=== PATIENT | female | born 1945 ===

== ENCOUNTER 2017-11-24 19:00 | Observation (INO) | payer OTHER ==
--- NOTE | 2017-11-24 20:07 | ED PDOC ---
HPI: Chest Pain Time Seen by Provider: 11/24/17 19:40 Chief Complaint (Nursing): Chest Pain History Per: Patient, Family History/Exam Limitations: no limitations Onset/Duration Of Symptoms: Hrs Current Symptoms Are (Timing): Still Present Quality: Aching Associated Symptoms: Diaphoresis Additional Complaint(s): 72 year old F with history of IDDM, hypothyroidism, depression, anemia, HTN presenting with chest pain, states that it started this morning at rest around 8AM, central, nonradiating, associated with shortness of breath that she describes as pleuritic. States that she has had no appetite for the past week, has not been able to sleep, and has mostly been in bed. No fevers, cough, chills, nausea, vomiting, diarrhea. States she was admitted at [facility] [place] last [place] for similar symptoms and was diagnosed with "blood pressure problems", but as far as patient and family knows, there's no history of any heart disease. Patient states she was having sweats but attributed this to fluctuations in blood pressure. Past Medical History Reviewed: Historical Data, Nursing Documentation, Vital Signs Vital Signs: Last Vital Signs Temp 98.3 F 11/25/17 05:20 Pulse 83 11/25/17 05:20 Resp 18 11/25/17 05:20 BP 112/69 11/25/17 05:20 Pulse Ox 93 L 11/25/17 05:20 - Medical History PMH: Diabetes, HTN - Surgical History Surgical History: Cholecystectomy - Family History Family History: States: Unknown Family Hx - Home Medications Home Medications: Ambulatory Orders Medication Instructions Recorded Aspirin [Adult Low Dose Aspirin EC] 81 mg PO DAILY 11/25/17 Canagliflozin [Invokana] 300 mg PO DAILY 11/25/17 Divalproex [Depakote DR] 500 mg PO HS 11/25/17 Ferrous Sulfate [Feosol] 325 mg PO DAILY 11/25/17 GlipiZIDE SR [Glucotrol XL] 5 mg PO BID 11/25/17 Insulin Lispro [Humalog (Insulin 20 units SC HS 11/25/17 Lispro)] Levothyroxine [Synthroid] 1 tab PO DAILY 11/25/17 MetFORMIN [glucoPHAGE] 1,000 mg PO BID 11/25/17 Mv,Min10/Folic Acid/D3/Ala/Lut 1 tab PO DAILY 11/25/17 [Strovite One Caplet] Legjf-2-Efrp Ethyl Esters [OMEGA 3] 1,000 mg PO BID 11/25/17 Omeprazole [Omeprazole] 40 mg PO DAILY 11/25/17 Ramipril [Altace] 10 mg PO DAILY 11/25/17 SITagliptin [Januvia] 100 mg PO DAILY 11/25/17 Simethicone [Mylicon Chew Tab] 80 mg PO TID 11/25/17 Zolpidem Tartrate [Ambien] 10 mg PO HS PRN 11/25/17 clonazePAM [Klonopin] 0.5 mg PO PRN PRN 11/25/17 - Allergies Allergies/Adverse Reactions: Allergies Allergy/AdvReac Type Severity Reaction Status Date / Time No Known Allergies Allergy Verified 11/24/17 19:16 MAYELA Risk Score for UA/NSTEMI - MAYELA Risk Score Age > 64: YES 3 or more CAD Risk Factors: YES Known CAD (Stenosis greater than 50%): NO Aspirin use in past 7 days: YES Severe Angina: NO EKG ST changes greater than 0.5mm: NO Positive Cardiac Marker: NO MAYELA Score: 3 Risk %: 13% Curb-65 Severity Score - CURB-65 Severity Score Confusion: No Bun >19mg/dl (>7mmol/L): No Respiratory Rate greater than/equal to 30: No Systolic BP <90 or Diastolic BP less than/equal 60mmHg: No Age >64: No Curb-65 Score: 0 Percentage 30-day mortality: 0.6% Wells Criteria for PE - Wells Criteria for Pulmonary Embolism Clinical Signs and Symptoms of DVT: No P.E is #1 Diagnosis, or Equally Likely: Yes Heart Rate >100: No Immobilization at least 3 days;Surgery previous 4 weeks: Yes Previous, objectively diagnosed PE or DVT: No Hemoptysis: No Malignancy w/treatment within 6 months, or palliative: No Total Score: 2.5 Review of Systems ROS Statement: Except As Marked, All Systems Reviewed And Found Negative Constitutional: Positive for: Sweats Cardiovascular: Positive for: Chest Pain Respiratory: Positive for: Shortness of Breath Physical Exam - Reviewed Nursing Documentation Reviewed: Yes Vital Signs Reviewed: Yes - Physical Exam Appears: Positive for: Well, Non-toxic, No Acute Distress Head Exam: Positive for: ATRAUMATIC, NORMAL INSPECTION, NORMOCEPHALIC Skin: Positive for: Normal Color, Warm, DRY Eye Exam: Positive for: EOMI, Normal appearance, PERRL ENT: Positive for: Normal ENT Inspection Neck: Positive for: Normal, Painless ROM Cardiovascular/Chest: Positive for: Regular Rate, Rhythm Respiratory: Positive for: CNT, Normal Breath Sounds Gastrointestinal/Abdominal: Positive for: Normal Exam, Soft. Negative for: Tenderness Back: Positive for: Normal Inspection Extremity: Positive for: Normal ROM Neurologic/Psych: Positive for: Alert, Oriented - Laboratory Results Result Diagrams: 11/24/17 20:08 11/24/17 20:08 - ECG ECG Rhythm: Positive for: Normal QRS, Normal ST Segment, Sinus Rhythm O2 Sat by Pulse Oximetry: 96 Pulse Ox Interpretation: Normal Medical Decision Making Medical Decision MakinPM A/P: Hx of multiple medical issues including DM presenting with chest pain -patient is comfortable, well appearing, BP 140's systolic currently without intervention, patient has already taken ASA today -patient has been in bed for many days, pleuritic chest pain could possibly by PE, will get d-dimer -will also get cardiac markers due to risk factors -will likely require OBS Tele admission given age and risk factors 0015 CT ANGIO CHEST FINDINGS: Pulmonary arteries: No pulmonary embolism. Aorta: Mild atherosclerotic disease. No aneurysm. Lungs: Mild atelectasis/scarring. No consolidation. Few pulmonary nodules, up to 0.4 cm. Pleural space: Trace bilateral pleural effusions. No pneumothorax. Heart: No cardiomegaly. No significant pericardial effusion. Mediastinum: Moderate to large hiatal hernia. Bones/joints: Mild compression deformities superior endplate L2, L3, L4 vertebral bodies, acute or subacute. Soft tissues: Unremarkable. Lymph nodes: No pathologically enlarged lymph nodes. Gallbladder and bile ducts: Cholecystectomy. IMPRESSION: 1. No CT evidence of pulmonary embolism. 2. Pulmonary nodules. For low-risk patients, no follow-up is necessary. For high -risk patients (smoking history or other known risk factors) an optional CT at 12 months could be performed. 3. Incidental/non-acute findings are described above. Patient comfortable, states she took ASA today. Given age and risk factors, will admit for continous cardiac monitoring and serial troponins. Dr. Cecilio woodward. Scribe Attestation: Documented by Magdalena Mooney acting as a scribe for Vega George MD. MD Mccarthy Attestation: All medical record entries made by the Eliibjonnie were at my direction and personally dictated by me. I have reviewed the chart and agree that the record accurately reflects my personal performance of the history, physical exam, medical decision making, and the department course for this patient. I have also personally directed, reviewed, and agree with the discharge instructions and disposition. Disposition - Clinical Impression Clinical Impression: Chest pain - Disposition Disposition Time: 00:15 Condition: FAIR
[2017-11-24 20:20] LABS: BASO # 0.1 K/uL (0.0-0.2); BASO % 1.2 % (0.0-2.0); EOS % 0.6 % (0.0-4.0); HEMOGLOBIN 14.2 g/dL (12.0-16.0); LYMPH # 2.5 K/uL (1.0-4.3); LYMPH % 39.3 % (20.0-40.0); MEAN CELL VOLUME 90.6 fl (81.0-99.0); MEAN CORPUSCULAR HEMOGLOBIN 30.3 pg (27.0-31.0); MEAN CORPUSCULAR HGB CONC 33.4 g/dL (33.0-37.0); MEAN PLATELET VOLUME 8.5 fl (7.2-11.7); MONO # 0.4 K/uL (0.0-0.8); NEUT # 3.3 K/uL (1.8-7.0); NEUT % 51.9 % (50.0-75.0); NRBC % 0.1 % (0.0-0.0); RBC 4.7 Mil/uL (3.80-5.20); RED CELL DISTRIBUTION WIDTH 13.8 % (11.5-14.5); WHITE BLOOD COUNT 6.3 K/uL (4.8-10.8)
[2017-11-24 20:26] LABS: BLOOD UREA NITROGEN 13 mg/dl (7-17); CALCIUM 8.6 mg/dL (8.4-10.2); GFR AFRICAN-AMERICAN > 60; GFR NON-AFRICAN AMERICAN > 60
[2017-11-24 20:48] LABS: PARTIAL THROMBOPLASTIN TIME 23.9 Seconds (25.6-37.1); PROTHROMBIN TIME 10.9 Seconds (9.8-13.1)
[2017-11-24] MEDS ORDERED: Iodixanol 320 MG/ML 100 ML BOTTLE IV ONE (23:10)
[2017-11-24] MEDS ORDERED: Sodium Chloride 0.9% 100 ML ONE (23:10)
--- NOTE | 2017-11-25 00:16 | CT ---
EXAM: CT Angiography Chest With Intravenous Contrast CLINICAL HISTORY: 72 years old, female; Pain; Chest pain; Type not specified; Additional info: Chest pain, elevated d-dimer, R/O pe TECHNIQUE: Axial computed tomographic angiography images of the chest with intravenous contrast using pulmonary embolism protocol. All CT scans at this facility use one or more dose reduction techniques, viz.: automated exposure control; ma/kV adjustment per patient size (including targeted exams where dose is matched to indication; i.e. head); or iterative reconstruction technique. MIP reconstructed images were created and reviewed. Coronal and sagittal reformatted images were created and reviewed. CONTRAST: 90 mL of [id number] administered intravenously. COMPARISON: CR - CHEST TWO VIEWS (PA/LAT) 2017-11-24 20:29 FINDINGS: Pulmonary arteries: No pulmonary embolism. Aorta: Mild atherosclerotic disease. No aneurysm. Lungs: Mild atelectasis/scarring. No consolidation. Few pulmonary nodules, up to 0.4 cm. Pleural space: Trace bilateral pleural effusions. No pneumothorax. Heart: No cardiomegaly. No significant pericardial effusion. Mediastinum: Moderate to large hiatal hernia. Bones/joints: Mild compression deformities superior endplate L2, L3, L4 vertebral bodies, acute or subacute. Soft tissues: Unremarkable. Lymph nodes: No pathologically enlarged lymph nodes. Gallbladder and bile ducts: Cholecystectomy. IMPRESSION: 1. No CT evidence of pulmonary embolism. 2. Pulmonary nodules. For low-risk patients, no follow-up is necessary. For high-risk patients (smoking history or other known risk factors) an optional CT at 12 months could be performed. 3. Incidental/non-acute findings are described above.
--- NOTE | 2017-11-25 08:26 | CP.PCM.HP ---
History of Present Illness - History of Present Illness History of Present Illness: 72 yo ,f, PMhx/o IDDM, hypothyroidism, depression, anemia, HTN presenting with chest pain, states that it started yesterday morning, central, nonradiating,non reproducible, lasting the whole day associated with some SOB and low appetite for the last 7 days, has not been able to sleep well, and has mostly been in bed. No fevers, cough, chills, nausea, vomiting, diarrhea. States she was admitted at [facility] [place] similar symptoms and was diagnosed with "blood pressure problems", but as far as patient and family knows, there's no history of any heart disease. Patient states she was having sweats but attributed this to fluctuations in blood pressure. PMD: Dr Hernandes Present on Admission - Present on Admission Any Indicators Present on Admission: No History of DVT/PE: No History of Uncontrolled Diabetes: No Urinary Catheter: No Decubitus Ulcer Present: No Review of Systems - Review of Systems All systems: reviewed and no additional remarkable complaints except - Cardiovascular Cardiovascular: Chest Pain, Dyspnea - Gastrointestinal Gastrointestinal: As Per HPI - Genitourinary Genitourinary: As Per HPI Past Patient History - Past Medical History & Family History Past Medical History?: Yes - Past Social History Smoking Status: Never Smoked - CARDIAC Hx Hypertension: Yes - PULMONARY Hx Respiratory Disorders: No - NEUROLOGICAL Hx Neurological Disorder: Yes Hx Syncope: Yes - HEENT Hx HEENT Problems: No - RENAL Hx Chronic Kidney Disease: No - ENDOCRINE/METABOLIC Hx Endocrine Disorders: Yes Hx Diabetes Mellitus Type 2: Yes Hx Hypothyroidism: Yes - HEMATOLOGICAL/ONCOLOGICAL Hx Blood Disorders: Yes Hx Anemia: Yes - INTEGUMENTARY Hx Dermatological Problems: No - MUSCULOSKELETAL/RHEUMATOLOGICAL Hx Musculoskeletal Disorders: No Hx Falls: No - GASTROINTESTINAL Hx Gastrointestinal Disorders: Yes Hx Gall Bladder Disease: Yes - GENITOURINARY/GYNECOLOGICAL Hx Genitourinary Disorders: No - PSYCHIATRIC Hx Psychophysiologic Disorder: Yes Hx Depression: Yes Hx Substance Use: No - SURGICAL HISTORY Hx Cholecystectomy: Yes - ANESTHESIA Hx Anesthesia: Yes Hx Anesthesia Reactions: No Hx Malignant Hyperthermia: No Meds Allergies/Adverse Reactions: Allergies Allergy/AdvReac Type Severity Reaction Status Date / Time No Known Allergies Allergy Verified 11/24/17 19:16 Physical Exam - Constitutional Appears: Non-toxic, No Acute Distress - Head Exam Head Exam: ATRAUMATIC, NORMOCEPHALIC - Eye Exam Eye Exam: Normal appearance - ENT Exam ENT Exam: Mucous Membranes Moist - Neck Exam Neck exam: Positive for: Normal Inspection - Respiratory Exam Respiratory Exam: Clear to Auscultation Bilateral. absent: Rales, Rhonchi, Wheezes - Cardiovascular Exam Cardiovascular Exam: REGULAR RHYTHM, +S1, +S2 - GI/Abdominal Exam GI & Abdominal Exam: Normal Bowel Sounds, Soft. absent: Tenderness - Extremities Exam Extremities exam: Positive for: normal inspection. Negative for: pedal edema - Neurological Exam Neurological exam: Alert, Oriented x3 - Psychiatric Exam Psychiatric exam: Normal Affect, Normal Mood - Skin Skin Exam: Intact Results - Vital Signs Recent Vital Signs: Last Vital Signs Temp 98.3 F 11/25/17 08:08 Pulse 78 11/25/17 08:08 Resp 20 11/25/17 08:08 BP 115/73 11/25/17 08:08 Pulse Ox 96 11/25/17 08:08 - Labs Result Diagrams: 11/24/17 20:08 11/24/17 20:08 Labs: Laboratory Results - last 24 hr 11/24/17 11/24/17 11/24/17 20:08 20:08 20:08 WBC 6.3 RBC 4.70 Hgb 14.2 Hct 42.5 MCV 90.6 MCH 30.3 MCHC 33.4 RDW 13.8 Plt Count 200 MPV 8.5 Neut % (Auto) 51.9 Lymph % (Auto) 39.3 Fannin % (Auto) 7.0 Eos % (Auto) 0.6 Baso % (Auto) 1.2 Neut # (Auto) 3.3 Lymph # (Auto) 2.5 Fannin # (Auto) 0.4 Eos # (Auto) 0.0 Baso # (Auto) 0.1 PT 10.9 INR 1.0 APTT 23.9 L D-Dimer, Quantitative 290 H Sodium 139 Potassium 3.7 Chloride 97 L Carbon Dioxide 30 Anion Gap 16 BUN 13 Creatinine 0.5 L Est GFR ( Amer) > 60 Est GFR (Non-Af Amer) > 60 POC Glucose (mg/dL) Random Glucose 227 H Calcium 8.6 Troponin I < 0.0120 11/25/17 11/25/17 05:00 05:25 WBC RBC Hgb Hct MCV MCH MCHC RDW Plt Count MPV Neut % (Auto) Lymph % (Auto) Fannin % (Auto) Eos % (Auto) Baso % (Auto) Neut # (Auto) Lymph # (Auto) Fannin # (Auto) Eos # (Auto) Baso # (Auto) PT INR APTT D-Dimer, Quantitative Sodium Potassium Chloride Carbon Dioxide Anion Gap BUN Creatinine Est GFR ( Amer) Est GFR (Non-Af Amer) POC Glucose (mg/dL) 233 H Random Glucose Calcium Troponin I < 0.0120 Assessment & Plan - Assessment and Plan (Free Text) Plan: Assessment/Plan 1) Chest pain unspecified To r/ oACS Troponin x 2 neg, ekg Q in DIII possible old GA. -CT Chest angion. No PE -cyanide pot tender consult suggested 2) DM Uncontrolled Hgba1c 8.9 c/w home meds 3) Hypothyroidism c/w home med 4)DVT Prophylaxis -lovenox 40 mg sc qday
[2017-11-25] MEDS ORDERED: Levothyroxine 75 MCG TAB PO SCH (09:00)
--- NOTE | 2017-11-25 09:12 | RAD ---
HISTORY: chest pain, shortness of breath COMPARISON: Chest radiograph dated 04/13/2011. TECHNIQUE: Chest PA and lateral FINDINGS: LUNGS: No active pulmonary disease. PLEURA: Large hiatal hernia. No significant pleural effusion identified. No pneumothorax apparent. CARDIOVASCULAR: Atherosclerotic aortic calcifications. Cardiomediastinal silhouette within normal limits. OSSEOUS STRUCTURES: Unchanged. VISUALIZED UPPER ABDOMEN: Normal. OTHER FINDINGS: None. IMPRESSION: No active disease. Large hiatal hernia.
[2017-11-25] MEDS: GlipiZIDE 5 mg SR Tab PO SCH ×2 (10:07→17:01)
[2017-11-25] MEDS: Simethicone 80 mg Chewtab PO SCH ×3 (10:08→17:03)
[2017-11-25] MEDS: Omega-3-Acid Ethyl Esters 1 GM Cap PO SCH ×2 (10:08→17:01)
[2017-11-25] MEDS: Multivitamin With Minerals Tab PO SCH (10:09)
[2017-11-25] MEDS: Levothyroxine 75 MCG TAB PO SCH (10:09)
[2017-11-25] MEDS: Pantoprazole 40 mg EC Tab PO SCH (10:09)
--- NOTE | 2017-11-25 12:18 | CARD ---
APPROVED REPORT EKG Measurement Heart [id number] <Conclusion> Normal sinus rhythm Possible Inferior infarct, age undetermined Abnormal ECG
[2017-11-25] MEDS: Insulin Regular 100 units/ml SC SCH ×3 (12:36→22:33)
[2017-11-25] MEDS ORDERED: Divalproex 500 mg DR(BID formulation) PO SCH (22:00)
[2017-11-25 23:58] VITALS: RESP 18
[2017-11-26] MEDS: Insulin Regular 100 units/ml SC SCH ×3 (06:00→17:38)
[2017-11-26] MEDS: Levothyroxine 75 MCG TAB PO SCH (06:05)
[2017-11-26 06:42] LABS: HEMOGLOBIN 13.9 g/dL (12.0-16.0); MEAN CELL VOLUME 89.7 fl (81.0-99.0); MEAN CORPUSCULAR HEMOGLOBIN 30.4 pg (27.0-31.0); MEAN CORPUSCULAR HGB CONC 33.9 g/dL (33.0-37.0); RBC 4.57 Mil/uL (3.80-5.20); RED CELL DISTRIBUTION WIDTH 13.9 % (11.5-14.5); WHITE BLOOD COUNT 8.6 K/uL (4.8-10.8)
[2017-11-26 06:56] LABS: BLOOD UREA NITROGEN 15 mg/dl (7-17); GFR AFRICAN-AMERICAN > 60; GFR NON-AFRICAN AMERICAN > 60
--- NOTE | 2017-11-26 07:47 | CP.PCM.CON ---
History of Present Illness - History of Present Illness History of Present Illness: I was asked to see patient by Dr Hernandes. Patient is a 72 year old female with PMH HTN, DM depression who presents with chest pain. The patient was sitting at home when she developed chest pressure which she describes as substernal. There were no associated symptoms and the pain occurred at rest. She has had recent bouts of depression and is currently seeing a psychiatrist. She describes poor appetitie. There was no previous exertional chest pain. Review of Systems - Constitutional Constitutional: absent: As Per HPI, Anorexia, Chills, Daytime Sleepiness, Excessive Sweating, Fatigue, Fever, Frequent Falls, Headache, Increased Appetite , Lethargy, Malaise, Night Sweats, Snoring, Sleep Apnea, Weight Gain, Weight Loss, Weakness, Other - EENT Eyes: absent: As Per HPI, Blind Spots, Blurred Vision, Change in Vision, Decreased Night Vision, Diplopia, Discharge, Dry Eye, Exophthalmos, Floaters, Irritation, Itchy Eyes, Loss of Peripheral Vision, Pain, Photophobia, Requires Corrective Lenses, Sees Flashes, Spots in Vision, Tunnel Vision, Other Visual Disturbances, Loss of Vision, Other Ears: absent: As Per HPI, Decreased Hearing, Ear Discharge, Ear Pain, Tinnitus, Abnormal Hearing, Disequilibrium, Dizziness, Other Nose/Mouth/Throat: absent: As Per HPI, Epistaxis, Nasal Congestion, Nasal Discharge, Nasal Obstruction, Nasal Trauma, Nose Pain, Post Nasal Drip, Sinus Pain, Sinus Pressure, Bleeding Gums, Change in Voice, Dental Pain, Dry Mouth, Dysphagia, Halitosis, Hoarsness, Lip Swelling, Mouth Lesions, Mouth Pain, Odynophagia, Sore Throat, Throat Swelling, Tongue Swelling, Facial Pain, Neck Pain, Neck Mass, Other - Cardiovascular Cardiovascular: absent: As Per HPI, Acrocyanosis, Chest Pain, Chest Pain at Rest , Chest Pain with Activity, Claudication, Diaphoresis, Dyspnea, Dyspnea on Exertion, Edema, Irregular Heart Rhythm, Pain Radiating to Arm/Neck/Jaw, Leg Edema, Leg Ulcers, Lightheadedness, Orthopnea, Palpitations, Paroxysmal Nocturnal Dyspnea, Pedal Edema, Radiating Pain, Rapid Heart Rate, Slow Heart Rate, Syncope, Other - Respiratory Respiratory: absent: As Per HPI, Cough, Dyspnea, Hemoptysis, Dyspnea on Exertion , Wheezing, Snoring, Stridor, Pain on Inspiration, Chest Congestion, Excessive Mucous Production, Change in Mucous Color, Pain with Coughing, Other - Gastrointestinal Gastrointestinal: absent: As Per HPI, Abdominal Pain, Belching, Bloating, Change in Bowel Habits, Change in Stool Character, Coffee Ground Emesis, Constipation, Cramping, Diarrhea, Dyspepsia, Dysphagia, Early Satiety, Excessive Flatus, Fecal Incontinence, Heartburn, Hematemesis, Hematochezia, Loose Stools, Melena, Nausea, Odynophagia, Temesmus, Vomiting, Other - Genitourinary Genitourinary: absent: As Per HPI, Change in Urinary Stream, Difficulty Urinating, Dysuria, Flank Pain, Hematuria, Pyuria, Nocturia, Urinary Incontinence, Urinary Frequency, Urinary Hesitance, Urinary Urgency, Voiding Freq/Small Amts, Freq UTI, Hx Renal/Bladder Calculi, Hx /Renal Surgery, Bladder Distension, Other - Musculoskeletal Musculoskeletal: absent: As Per HPI, Abnormal Gait, Arthralgias, Atrophy, Back Pain, Deformity, Joint Swelling, Limited Range of Motion, Loss of Height, Muscle Cramps, Muscle Weakness, Myalgias, Neck Pain, Numbness, Radiating Pain into Limb, Stiffness, Tingling, Other - Integumentary Integumentary: absent: As Per HPI, Acne, Alopecia, Bleeding Lesions, Change in Hair, Change in Nails, Change in Pigmentation, Changing Lesions, Dry Skin, Erythema, Furuncle, Hirsutism, Lesions, New Lesions, Non-Healing Lesions, Photosensitivity, Pruritus, Rash, Skin Pain, Skin Ulcer, Sores, Striae, Swelling , Unusual Bruising, Wounds, Jaundice, Other - Neurological Neurological: absent: As Per HPI, Abnormal Gait, Abnormal Hearing, Abnormal Movements, Abnormal Speech, Behavioral Changes, Burning Sensations, Confusion, Convulsions, Disequilibrium, Dizziness, Numbness, Focal Weakness, Frequent Falls , Headaches, Lack of Coordination, Loss of Vision, Memory Loss, Paresthesias, Radicular Pain, Restless Legs, Sensory Deficit, Syncope, Tingling, Tremor, Vertigo, Weakness, Other Visual Disturbances, Other - Psychiatric Psychiatric: absent: As Per HPI, Abnormal Sleep Pattern, Anhedonia, Anxiety, Auditory Hallucinations, Behavioral Changes, Change in Appetite, Change in Libido, Confusion, Depression, Difficulty Concentrating, Hallucinations, Homicidal Ideation, Hopelessness, Irritability, Memory Loss, Mood Swings, Panic Attacks, Paranoia, Suicidal Ideation, Visual Hallucinations, Tactile Hallucinations, Other - Endocrine Endocrine: absent: As Per HPI, Change in Body Appearance, Change in Libido, Cold Intolorance, Deepening of Voice, Excessive Sweating, Fatigue, Flushing, Heat Intolorance, Increase in Ring/Shoe/Hat Size, Palpitations, Polydipsia, Polyphagia, Polyuria, Other - Hematologic/Lymphatic Hematologic: absent: As Per HPI, Easy Bleeding, Easy Bruising, Lymphadenopathy, Other Past Patient History - Past Medical History & Family History Past Medical History?: Yes - Past Social History Smoking Status: Never Smoked - CARDIAC Hx Hypertension: Yes - PULMONARY Hx Respiratory Disorders: No - NEUROLOGICAL Hx Neurological Disorder: Yes Hx Syncope: Yes - HEENT Hx HEENT Problems: No - RENAL Hx Chronic Kidney Disease: No - ENDOCRINE/METABOLIC Hx Endocrine Disorders: Yes Hx Diabetes Mellitus Type 2: Yes Hx Hypothyroidism: Yes - HEMATOLOGICAL/ONCOLOGICAL Hx Blood Disorders: Yes Hx Anemia: Yes - INTEGUMENTARY Hx Dermatological Problems: No - MUSCULOSKELETAL/RHEUMATOLOGICAL Hx Musculoskeletal Disorders: No Hx Falls: No - GASTROINTESTINAL Hx Gastrointestinal Disorders: Yes Hx Gall Bladder Disease: Yes - GENITOURINARY/GYNECOLOGICAL Hx Genitourinary Disorders: No - PSYCHIATRIC Hx Psychophysiologic Disorder: Yes Hx Depression: Yes Hx Substance Use: No - SURGICAL HISTORY Hx Cholecystectomy: Yes - ANESTHESIA Hx Anesthesia: Yes Hx Anesthesia Reactions: No Hx Malignant Hyperthermia: No Meds Allergies/Adverse Reactions: Allergies Allergy/AdvReac Type Severity Reaction Status Date / Time No Known Allergies Allergy Verified 11/24/17 19:16 - Medications Medications: Current Medications Aspirin (Ecotrin) 81 mg PO DAILY [facility] Last Admin: 11/25/17 10:03 Dose: 81 mg Clonazepam (Klonopin) 0.5 mg PO BID PRN PRN Reason: anxiety/insomnia Last Admin: 11/26/17 02:55 Dose: 0.5 mg Divalproex Sodium (Depakote Dr(*Bid*)) 500 mg PO HS [facility] Last Admin: 11/25/17 21:41 Dose: 500 mg Enoxaparin Sodium (Lovenox) 40 mg SC DAILY [facility] PRN Reason: Protocol Ferrous Sulfate (Feosol) 325 mg PO DAILY [facility] Last Admin: 11/25/17 10:03 Dose: 325 mg Glipizide (Glucotrol Xl) 5 mg PO BID [facility] Last Admin: 11/25/17 17:01 Dose: 5 mg Insulin Human Regular (Humulin R) 0 units SC ACCU-CHECK [facility] PRN Reason: Protocol Last Admin: 11/26/17 06:00 Dose: 2 units Levothyroxine Sodium (Synthroid) 75 mcg PO DAILY@0630 [facility] Last Admin: 11/26/17 06:05 Dose: 75 mcg Metformin HCl (Glucophage) 1,000 mg PO BID [facility] Last Admin: 11/25/17 17:00 Dose: 1,000 mg Multivitamins/Minerals (Therapeutic-M Tab) 1 tab PO DAILY [facility] Last Admin: 11/25/17 10:09 Dose: 1 tab [id number] Ethyl Esters (Lovaza) 1 gm PO BID [facility] Last Admin: 11/25/17 17:01 Dose: 1 gm Pantoprazole Sodium (Protonix Ec Tab) 40 mg PO DAILY [facility] Last Admin: 11/25/17 10:09 Dose: 40 mg Ramipril (Altace) 10 mg PO DAILY [facility] Last Admin: 11/25/17 10:02 Dose: 10 mg Simethicone (Mylicon Chew Tab) 80 mg PO TID [facility] Last Admin: 11/25/17 17:03 Dose: 80 mg Sitagliptin Phosphate (Januvia) 100 mg PO DAILY [facility] Last Admin: 11/25/17 10:07 Dose: 100 mg Zolpidem Tartrate (Ambien) 5 mg PO PRN PRN Reason: Insomnia Last Admin: 11/25/17 21:44 Dose: 5 mg Physical Exam - Constitutional Appears: Non-toxic - Head Exam Head Exam: NORMAL INSPECTION - Eye Exam Eye Exam: Normal appearance - ENT Exam ENT Exam: Mucous Membranes Moist - Neck Exam Neck exam: Positive for: Full Rom - Respiratory Exam Respiratory Exam: NORMAL BREATHING PATTERN - Cardiovascular Exam Cardiovascular Exam: REGULAR RHYTHM - GI/Abdominal Exam GI & Abdominal Exam: Normal Bowel Sounds - Rectal Exam Rectal Exam: Deferred - Extremities Exam Extremities exam: Negative for: pedal edema - Back Exam Back exam: NORMAL INSPECTION - Neurological Exam Neurological exam: Alert, Oriented x3 - Psychiatric Exam Psychiatric exam: Normal Affect - Skin Skin Exam: Normal Color Results - Vital Signs Recent Vital Signs: Last Vital Signs Temp 98.0 F 05/11/18 04:42 Pulse 80 11/26/17 04:42 Resp 18 11/26/17 04:42 BP 129/77 11/26/17 04:42 Pulse Ox 98 11/26/17 04:42 - Labs Result Diagrams: 11/26/17 05:30 11/26/17 05:30 Labs: Laboratory Results - last 24 hr 11/25/17 11/25/17 11/25/17 10:00 10:46 12:10 WBC RBC Hgb Hct MCV MCH MCHC RDW Plt Count Sodium Potassium Chloride Carbon Dioxide Anion Gap BUN Creatinine Est GFR ( Amer) Est GFR (Non-Af Amer) POC Glucose (mg/dL) 245 H Random Glucose Hemoglobin A1c 8.9 H Calcium Troponin I < 0.0120 11/25/17 11/26/17 11/26/17 15:51 05:30 05:30 WBC 8.6 RBC 4.57 Hgb 13.9 Hct 41.0 MCV 89.7 MCH 30.4 MCHC 33.9 RDW 13.9 Plt Count 213 Sodium 139 Potassium 3.6 Chloride 100 Carbon Dioxide 29 Anion Gap 14 BUN 15 Creatinine 0.5 L Est GFR ( Amer) > 60 Est GFR (Non-Af Amer) > 60 POC Glucose (mg/dL) 117 H Random Glucose 162 H Hemoglobin A1c Calcium 9.0 Troponin I 11/26/17 05:36 WBC RBC Hgb Hct MCV MCH MCHC RDW Plt Count Sodium Potassium Chloride Carbon Dioxide Anion Gap BUN Creatinine Est GFR ( Amer) Est GFR (Non-Af Amer) POC Glucose (mg/dL) 154 H Random Glucose Hemoglobin A1c Calcium Troponin I - EKG Data EKG Interpreted by: Myself Assessment & Plan (1) Chest pain Assessment and Plan: patient has ruled out for myocardial infarction. The echocardiogram reveals normal left ventricular function. There are no wall motion abnormalities. Patient is stable for discharge. I recommend outpatient stress test. Status: Acute (2) Diabetes Assessment and Plan: risk factor for CAD. Outpatient stress test Status: Acute
[2017-11-26] MEDS: Pantoprazole 40 mg EC Tab PO SCH (08:47)
[2017-11-26] MEDS: Omega-3-Acid Ethyl Esters 1 GM Cap PO SCH ×2 (08:47→17:38)
[2017-11-26] MEDS: Multivitamin With Minerals Tab PO SCH (08:47)
[2017-11-26] MEDS: GlipiZIDE 5 mg SR Tab PO SCH ×2 (08:48→17:38)
[2017-11-26] MEDS: Simethicone 80 mg Chewtab PO SCH ×3 (08:49→17:38)
[2017-11-26] MEDS ORDERED: Enoxaparin 40 mg Syringe SC SCH (09:00)
--- NOTE | 2017-11-26 09:20 | CP.PCM.DIS ---
Provider - Provider Date of Admission: 11/25/17 00:35 Attending physician: Gera Bay MD Consults: Dirt Shoveler Dr Herrera Time Spent in preparation of Discharge (in minutes): 20 Hospital Course - Lab Results Lab Results: Most Recent Lab Values WBC 8.6 K/uL (4.8-10.8) 11/26/17 05:30 RBC 4.57 Mil/uL (3.80-5.20) 11/26/17 05:30 Hgb 13.9 g/dL (12.0-16.0) 11/26/17 05:30 Hct 41.0 % (34.0-47.0) 11/26/17 05:30 MCV 89.7 fl (81.0-99.0) 11/26/17 05:30 MCH 30.4 pg (27.0-31.0) 11/26/17 05:30 MCHC 33.9 g/dL (33.0-37.0) 11/26/17 05:30 RDW 13.9 % (11.5-14.5) 11/26/17 05:30 Plt Count 213 K/uL (130-400) 11/26/17 05:30 MPV 8.5 fl (7.2-11.7) 11/24/17 20:08 Neut % (Auto) 51.9 % (50.0-75.0) 11/24/17 20:08 Lymph % (Auto) 39.3 % (20.0-40.0) 11/24/17 20:08 Butler % (Auto) 7.0 % (0.0-10.0) 11/24/17 20:08 Eos % (Auto) 0.6 % (0.0-4.0) 11/24/17 20:08 Baso % (Auto) 1.2 % (0.0-2.0) 11/24/17 20:08 Neut # (Auto) 3.3 K/uL (1.8-7.0) 11/24/17 20:08 Lymph # (Auto) 2.5 K/uL (1.0-4.3) 11/24/17 20:08 Butler # (Auto) 0.4 K/uL (0.0-0.8) 11/24/17 20:08 Eos # (Auto) 0.0 K/uL (0.0-0.7) 11/24/17 20:08 Baso # (Auto) 0.1 K/uL (0.0-0.2) 11/24/17 20:08 PT 10.9 Seconds (9.8-13.1) 11/24/17 20:08 INR 1.0 (0.9-1.2) 11/24/17 20:08 APTT 23.9 Seconds (25.6-37.1) L 11/24/17 20:08 D-Dimer, Quantitative 290 ng/mlDDU (0-230) H 11/24/17 20:08 Sodium 139 mmol/l (132-148) 11/26/17 05:30 Potassium 3.6 MMOL/L (3.6-5.0) 11/26/17 05:30 Chloride 100 mmol/L (98-107) 11/26/17 05:30 Carbon Dioxide 29 mmol/L (22-30) 11/26/17 05:30 Anion Gap 14 (10-20) 11/26/17 05:30 BUN 15 mg/dl (7-17) 11/26/17 05:30 Creatinine 0.5 mg/dl (0.7-1.2) L 11/26/17 05:30 Est GFR ( Amer) > 60 11/26/17 05:30 Est GFR (Non-Af Amer) > 60 11/26/17 05:30 POC Glucose (mg/dL) 154 mg/dL (65-110) H 11/26/17 05:36 Random Glucose 162 mg/dL (65-105) H 11/26/17 05:30 Hemoglobin A1c 8.9 % (4.2-6.5) H 11/25/17 10:00 Calcium 9.0 mg/dL (8.4-10.2) 11/26/17 05:30 Troponin I < 0.0120 ng/mL (0.00-0.120) 11/25/17 12:10 - Hospital Course Hospital Course: 72 yo ,f, PMhx/o IDDM, hypothyroidism, depression, anemia, HTN presenting admitted for chest pain, that subsided while on telemetry. ACS ruled out, troponin x 3 neg, EKG q d III. Patient evaluated by Dirt Shoveler Dr Mcgill, who recommends stress test outpatient. Patient while on telemetry with depression, anhedonia, insomnia, low appetite. Psyq consulted. Patient will be voluntary admitted to geropsyq unit. Patient agree with the plan. Patient evaluated by Dr bay on round today. Clinically stable, labs and Vs stable to go to psyq unit. Diagnosis 1) Chest pain unspecified Ruled out ACS 2) DM Uncontrolled Hgba1c 8.9 c/w home meds 3) Major Depression -will be admitted geropsyq 4) Hypothyroidism c/w home med Discharge Exam - Head Exam Head Exam: NORMAL INSPECTION - Eye Exam Eye Exam: Normal appearance - ENT Exam ENT Exam: Mucous Membranes Moist - Respiratory Exam Respiratory Exam: Clear to PA & Lateral. absent: Rales, Rhonchi - Cardiovascular Exam Cardiovascular Exam: REGULAR RHYTHM, +S1, +S2 - GI/Abdominal Exam GI & Abdominal Exam: Normal Bowel Sounds. absent: Guarding, Rebound - Extremities Exam Extremities exam: normal inspection - Neurological Exam Neurological exam: Alert, Oriented x3 - Psychiatric Exam Psychiatric exam: Flat Affect - Skin Skin Exam: Intact Discharge Plan - Follow Up Plan Condition: FAIR Disposition: OTHER INSTITUTION Instructions: Chest Pain (DC) Additional Instructions: pt. cleared for discharge to Home today by and but patient with depression and under evaluation by psyq today, patient will be voluntary admitted to geropsyq unit Echo reviewed by , normal LV fx, pt. will require outpatient stress test f/u with and in 1 week cont. current meds Referrals: Gera Bay MD [Family Provider] - Tova Mcgill MD [Staff Provider] -
[2017-11-26] MEDS ORDERED: Dextrose 50% SYRINGE Inj (50 ml) IV PRN (11:23)
[2017-11-26] MEDS ORDERED: Glucagon Recombinant 1 mg Inj IM PRN (11:23)
--- NOTE | 2017-11-26 11:53 | CARD ---
APPROVED REPORT EXAM: Two-dimensional and M-mode echocardiogram with Doppler and color Doppler. Other Information Quality : GoodRhythm : NSR INDICATION Chest Pain 2D DIMENSIONS IVSd1.19 (0.7-1.1cm)LVDd3.52 (3.9-5.9cm) LVOT Diameter2.18 (1.8-2.4cm)PWd1.16 (0.7-1.1cm) IVSs1.22 (0.8-1.2cm)LVDs2.50 (2.5-4.0cm) FS (%) 29.1 %PWs1.26 (0.8-1.2cm) M-Mode DIMENSIONS Left Atrium (MM)3.61 (2.5-4.0cm)IVSd1.05 (0.7-1.1cm) Aortic Root2.98 (2.2-3.7cm)LVDd4.33 (4.0-5.6cm) Aortic Cusp Exc.2.04 (1.5-2.0cm)PWd0.99 (0.7-1.1cm) IVSs1.93 cmFS (%) 62 % LVDs1.65 (2.0-3.8cm)PWs1.43 cm Mitral Valve MV E Peujpqvd92.7cm/sMV DECEL [id number] A Qtbeckxr39.9cm/s MV HRY01arL/A ratio0.6MVA (PHT)6.31cm2 TDI Lateral E' Peak V6.68cm/sMedial E' Peak V5.13cm/sE/Lateral E'7.0 E/Medial E'9.1 Pulmonary Valve PV Peak Afugizfq33.4cm/s LEFT VENTRICLE The left ventricle is normal size. There is normal left ventricular wall thickness. The left ventricular function is normal. The left ventricular ejection fraction is 60% There is normal LV segmental wall motion. Transmitral Doppler flow pattern is Grade I-abnormal relaxation pattern. No left ventricle thrombus noted on this study. There is no ventricular septal defect visualized. There is no left ventricular aneurysm. There is no mass noted in the left ventricle. RIGHT VENTRICLE The right ventricle is normal size. There is normal right ventricular wall thickness. The right ventricular systolic function is normal. ATRIA The left atrium size is normal. The right atrium size is normal. The interatrial septum is intact with no evidence for an atrial septal defect. AORTIC VALVE The aortic valve is normal in structure. No aortic regurgitation is present. There is no aortic valvular stenosis. There is no aortic valvular vegetation. MITRAL VALVE The mitral valve is normal in structure. There is no evidence of mitral valve prolapse. There is no mitral valve stenosis. There is no mitral valve regurgitation noted. TRICUSPID VALVE The tricuspid valve is normal in structure. There is no tricuspid valve regurgitation noted. There is no tricuspid valve prolapse or vegetation. There is no tricuspid valve stenosis. PULMONIC VALVE The pulmonary valve is normal in structure. There is no pulmonic valvular regurgitation. There is no pulmonic valvular stenosis. GREAT VESSELS The aortic root is normal in size. The ascending aorta is normal in size. The IVC is normal in size and collapses >50% with inspiration. PERICARDIAL EFFUSION The pericardium appears normal. There is no pleural effusion. <Conclusion> Normal Echocardiogram
--- NOTE | 2017-11-26 12:22 | CP.PCM.CON ---
History of Present Illness - History of Present Illness History of Present Illness: pt is a 72 ys old female with previous psychiatric diagnosis of depression, pt has one previous psychiatric admission at [facility] for overdose on medications, since then has been following up with private psychiatrist, questionable compliance with follow up and treatment pt has been admitted to medical floor for chest pain, pt reported has been increasingly depressed for past few weeks as she is very lonely, spending most of her time by herself, reported poor sleep with early insomnia, poor appetite loosing an unspecified amount of weight . low energy, increased anxiety,crying episodes, feeling hopeless, having passive suicidal ideation, wishing she is not alive, denied homicidal ideation , denied psychotic symptoms Past Patient History - Past Medical History & Family History Past Medical History?: Yes - Past Social History Smoking Status: Never Smoked - CARDIAC Hx Hypertension: Yes - PULMONARY Hx Respiratory Disorders: No - NEUROLOGICAL Hx Neurological Disorder: Yes Hx Syncope: Yes - HEENT Hx HEENT Problems: No - RENAL Hx Chronic Kidney Disease: No - ENDOCRINE/METABOLIC Hx Endocrine Disorders: Yes Hx Diabetes Mellitus Type 2: Yes Hx Hypothyroidism: Yes - HEMATOLOGICAL/ONCOLOGICAL Hx Blood Disorders: Yes Hx Anemia: Yes - INTEGUMENTARY Hx Dermatological Problems: No - MUSCULOSKELETAL/RHEUMATOLOGICAL Hx Musculoskeletal Disorders: No Hx Falls: No - GASTROINTESTINAL Hx Gastrointestinal Disorders: Yes Hx Gall Bladder Disease: Yes - GENITOURINARY/GYNECOLOGICAL Hx Genitourinary Disorders: No - PSYCHIATRIC Hx Psychophysiologic Disorder: Yes Hx Depression: Yes Hx Substance Use: No - SURGICAL HISTORY Hx Cholecystectomy: Yes - ANESTHESIA Hx Anesthesia: Yes Hx Anesthesia Reactions: No Hx Malignant Hyperthermia: No Meds Allergies/Adverse Reactions: Allergies Allergy/AdvReac Type Severity Reaction Status Date / Time No Known Allergies Allergy Verified 11/24/17 19:16 - Medications Medications: Current Medications Aspirin (Ecotrin) 81 mg PO DAILY [facility] Last Admin: 11/26/17 08:48 Dose: 81 mg Clonazepam (Klonopin) 0.5 mg PO BID PRN PRN Reason: anxiety/insomnia Last Admin: 11/26/17 08:53 Dose: 0.5 mg Dextrose (Dextrose 50% Inj) 0 ml IV STAT PRN; Protocol PRN Reason: Hypoglycemia Protocol Dextrose (Glutose 15) 0 gm PO ONCE PRN; Protocol PRN Reason: Hypoglycemia Protocol Divalproex Sodium (Depakote Dr(*Bid*)) 500 mg PO HS [facility] Last Admin: 11/25/17 21:41 Dose: 500 mg Enoxaparin Sodium (Lovenox) 40 mg SC DAILY [facility] PRN Reason: Protocol Last Admin: 11/26/17 08:46 Dose: 40 mg Ferrous Sulfate (Feosol) 325 mg PO DAILY [facility] Last Admin: 11/26/17 08:47 Dose: 325 mg Glipizide (Glucotrol Xl) 5 mg PO BID [facility] Last Admin: 11/26/17 08:48 Dose: 5 mg Glucagon (Glucagen Diagnostic Kit) 0 mg IM STAT PRN; Protocol PRN Reason: Hypoglycemia Protocol Insulin Detemir (Levemir) 5 units SC HS [facility] Insulin Human Regular (Humulin R) 0 units SC ACCU-CHECK [facility] PRN Reason: Protocol Last Admin: 11/26/17 06:00 Dose: 2 units Levothyroxine Sodium (Synthroid) 75 mcg PO DAILY@0630 [facility] Last Admin: 11/26/17 06:05 Dose: 75 mcg Metformin HCl (Glucophage) 1,000 mg PO BID [facility] Last Admin: 11/26/17 08:47 Dose: 1,000 mg Multivitamins/Minerals (Therapeutic-M Tab) 1 tab PO DAILY [facility] Last Admin: 11/26/17 08:47 Dose: 1 tab [id number] Ethyl Esters (Lovaza) 1 gm PO BID [facility] Last Admin: 11/26/17 08:47 Dose: 1 gm Pantoprazole Sodium (Protonix Ec Tab) 40 mg PO DAILY [facility] Last Admin: 11/26/17 08:47 Dose: 40 mg Ramipril (Altace) 10 mg PO DAILY [facility] Last Admin: 11/26/17 08:48 Dose: 10 mg Simethicone (Mylicon Chew Tab) 80 mg PO TID [facility] Last Admin: 11/26/17 08:49 Dose: 80 mg Sitagliptin Phosphate (Januvia) 100 mg PO DAILY [facility] Last Admin: 11/26/17 08:47 Dose: 100 mg Zolpidem Tartrate (Ambien) 5 mg PO HS PRN PRN Reason: Insomnia Last Admin: 11/25/17 21:44 Dose: 5 mg Physical Exam - Psychiatric Exam Additional comments: patient seen in bed, partial eye contact , speech soft and slow depressed mood affect sad and tearful, reported passive suicidal ideation , denied homicidal ideation denied psychotic symptoms, alert awake oriented to person and place Results - Vital Signs Recent Vital Signs: Last Vital Signs Temp 98.4 F 11/26/17 12:00 Pulse 82 11/26/17 12:00 Resp 18 11/26/17 12:00 BP 107/69 11/26/17 12:00 Pulse Ox 94 L 11/26/17 12:00 - Labs Result Diagrams: 11/26/17 05:30 11/26/17 05:30 Labs: Laboratory Results - last 24 hr 11/25/17 11/25/17 11/25/17 10:00 12:10 15:51 WBC RBC Hgb Hct MCV MCH MCHC RDW Plt Count Sodium Potassium Chloride Carbon Dioxide Anion Gap BUN Creatinine Est GFR ( Amer) Est GFR (Non-Af Amer) POC Glucose (mg/dL) 117 H Random Glucose Hemoglobin A1c 8.9 H Calcium Troponin I < 0.0120 11/25/17 11/26/17 11/26/17 21:12 05:30 05:30 WBC 8.6 RBC 4.57 Hgb 13.9 Hct 41.0 MCV 89.7 MCH 30.4 MCHC 33.9 RDW 13.9 Plt Count 213 Sodium 139 Potassium 3.6 Chloride 100 Carbon Dioxide 29 Anion Gap 14 BUN 15 Creatinine 0.5 L Est GFR ( Amer) > 60 Est GFR (Non-Af Amer) > 60 POC Glucose (mg/dL) 180 H Random Glucose 162 H Hemoglobin A1c Calcium 9.0 Troponin I 11/26/17 11/26/17 05:36 10:43 WBC RBC Hgb Hct MCV MCH MCHC RDW Plt Count Sodium Potassium Chloride Carbon Dioxide Anion Gap BUN Creatinine Est GFR ( Amer) Est GFR (Non-Af Amer) POC Glucose (mg/dL) 154 H 161 H Random Glucose Hemoglobin A1c Calcium Troponin I Assessment & Plan - Assessment and Plan (Free Text) Assessment: major depression recurrent severe Plan: [facility] with [facility] mood and suicidal ideation pt would benefit from admission to psychiatry for medication stabilization pt agreed to be admitted voluntary to psychiatry recommend starting remeron 7.5mg qhs
[2017-11-26 16:18] VITALS: BP 114/78; PULSE 77; TEMP 98.1; O2SAT 95
[2017-11-26] MEDS ORDERED: Insulin Detemir 100 Units/ml Inj SC SCH (22:00)
== END 2017-11-26 21:05 ==
LOC: H.ER 19:00 → H.ERHOLD 11-25 00:35 → H.TEL 11-25 01:47
PROVIDERS: ADMIT Family Medicine; ATTEND Family Medicine
DX: R07.9 Chest pain, unspecified (principal); F33.2 Major depressive disorder, recurrent severe without psychotic features; E11.65 Type 2 diabetes mellitus with hyperglycemia; E03.9 Hypothyroidism, unspecified; D64.9 Anemia, unspecified; I10 Essential (primary) hypertension; G47.00 Insomnia, unspecified; I25.2 Old myocardial infarction; K44.9 Diaphragmatic hernia without obstruction or gangrene; Z79.4 Long term (current) use of insulin; Z79.84 Long term (current) use of oral hypoglycemic drugs; Z79.82 Long term (current) use of aspirin
CPT/HCPCS: 36415; 71046; 71275; 80048; 82948; 83036; 84484; 85025; 85027; 85378; 85610; 85730; 93005; 93306; 97116; 97161; 97530; 99285; G0378; G8978; G8979; J1650; Q9967

== ENCOUNTER 2017-11-26 21:16 | Inpatient (IN) | payer OTHER, MEDICAID ==
[2017-11-26 21:25] VITALS: BMI 25.7
[2017-11-26] MEDS ORDERED: Bismuth Subsalicylate 262 mg/15 ml Sus (240 ml) PO PRN (21:30)
[2017-11-26] MEDS ORDERED: Alum-Mag Hydrox-Simethicone Susp (30 mL) PO PRN (21:30)
[2017-11-26] MEDS ORDERED: Magnesium Hydroxide Susp 30 ml UD PO PRN (21:30)
--- NOTE | 2017-11-26 21:33 | PCM.BM ---
<AnayaleonardNicole - Last Filed: 11/26/17 21:32> Treatment Plan Problems - Problems identified on initial assessmt Hopelessness/Helplessness Date Initiated: 11/26/17 Time Initiated: 21:32 Assessment reference: NA Status: Active Treatment assets and liabiliti Patient Assests: cooperative, good support system, negotiates basic needs Patient Liabilities: live alone, medical problems - Milieu Protocol Maintain good personal hygiene: daily Encourage regular showers, daily Remind patient to perform daily oral care, daily Assist patient to perform ADL's Conduct patient checks and document Observation sheet: Q15 minutes Maintain personal safety: every shift Educate patient to report safety concerns to staff, every shift Monitor environment for contraband/sharps Medication safety: Monitor for expected outcome, potential side effects: every shift, Assess barriers to learning: every shift, Assess readiness for medication education: every shift <Brando Dyson - Last Filed: 11/28/17 17:40> Family Contact Family involvement: Family/SO is involved Family contact: Patient agrees to contact, Family has been contacted by patient Family contact name: Teddy Mireles - Daughter [phone] Family contacted how many times per week?: 3 - Goals for Treatment Patient goals for treatment: Pt would like staff to connect her to a new psychiatrist so she can continue to receive her medication. Pt is discharge focused. Discharge/Continuing Care - Education Needs Education Needs: Patient Medication, Patient Diagnosis/Disease Process, Patient Coping Skills, Patient Aftercare Safety Plan - Discharge Discharge Criteria: Tolerates medication w/o severe side effects, Free of Suicidal thoughts, Free of agitation, Normal sleep pattern, Reduction of target symptoms Discharge to:: Home, With Family <Alba Braswell - Last Filed: 11/29/17 08:30> - Diagnosis (1) Major depressive disorder Status: Acute Interventions: Medication management, Individual and group therapy, Psychoeducation 11/29/17 08:30 <Ashanti Ga - Last Filed: 11/29/17 12:51> Family Contact Family contact: Patient agrees to contact, Family has been contacted by patient , Telephone contact initiated by staff Family contact name: Melo Mireles (son) Family contacted how many times per week?: 2 Family contact comment: [phone] - Outside Agency Dr. Alessandra Umaña MD [facility]: Information-sharing Agency contact name: Dr. Chasidy MD Agency contact number: [phone] [facility], [facility]: [employer] [facility] [employer] Agency contact number: [phone] - Goals for Treatment Patient goals for treatment: Pt to be encouraged to attend activity and clinical groups 3-5x per week to identify at least 2 contributing factors to depression and suicide attempt. Psycho-education to be provided to patient/ family regarding benefits of medications and treatment adherence. Pt to be encouraged to participate in group milieu to develop effective coping skills to reduce depression and free of suicide ideation. Coordinate discharge resource needs by providing referral for psychiatric treatment follow up in the community. Discharge/Continuing Care - Education Needs Education Needs: Family Medication, Family Diagnosis/Disease Process, Family Coping Skills, Family Community resources, Family Activities of Daily Living, Family Health Practices/Safety, Family Personal Hygiene/Grooming, Family Aftercare Safety Plan, Patient Medication, Patient Diagnosis/Disease Process, Patient Coping Skills, Patient Community resources, Patient Activities of Daily Living, Patient Health Practices/Safety, Patient Personal Hygiene/Grooming, Patient Aftercare Safety Plan - Discharge Discharge Criteria: Tolerates medication w/o severe side effects, Normal sleep pattern, Ability to care for self, Reduction of target symptoms, Other ( Decreased depressive symptoms) Discharge to:: Home, With Family - Additional Comments 11/29/17 12:46 Pt seen and discussed in team meeting. Reason for hospitalization reviewed and discussed. Pt reported feeling "depressed" for a very long time. Pt reported decreased appetite resulting in weight loss (unknown lbs). Pt also reported poor sleep patter, 1-2 hours daily. Pt reported being prescribed medication by her [employer] psychiatrist, Dr. Alessandra Umaña MD however feels as if they are not working effectively. Pt reported no improvement in mood with medications. Pt denied SI and HI. Pt denied AVH. Pt denied any paranoia. Pt resides with her son , Melo Mireles and is linked to [facility] services via [facility], Wednesday through Wednesday for 4 hours and on Wednesday for 5 hours. Pt reported feeling "bad" at the present time. Pt is poverty of speech. Pt's medical issues and social issues reviewed. Pt's medications reviewed. Pt agreeable with RN contacting her pharmacy, [facility] for MAR report. Pt unable to explain why she is prescribed Depakote. Tx plan reviewed and pt agreeable. SW to continue to follow case. Pt signed consent form for son, Melo. SW will contact son for collateral information. - Treatment Team Participation Discussed with Family/SO: No Was Patient/Family/SO present at Treatment Team Meeting: Yes
[2017-11-26] MEDS: Divalproex 500 mg DR(BID formulation) PO SCH (22:14)
--- NOTE | 2017-11-27 07:06 | PCM.PSYCH ---
Initial Psychiatric Evaluation - Initial Psychiatric Evaluation Type of Admission: Voluntary Chief Complaint (in patient's own words): i feel lonely Patient's Reaction to Hospitalization: pt is sad History of Present Illness and Precipitating Events: This is a 72 year old female with h/o severe depression,transferred from[address] [place] [address] because of severe depression,with helplessness and hopelessness and initially admitted for chest pain and has h/o one previous admission to [facility] following a suicidal attempt by overdose on pills,.pt reports feeling very depressed for several months and feels lonely as she is by herself and c/o anhedonia,poor sleep and poor appetite and feelings if hopelessness. Current Medications: Active Medications Generic Name Dose Route Start Last Admin Trade Name Freq PRN Reason Stop Dose Admin Acetaminophen 650 mg 11/26/17 21:30 Tylenol 325mg Tab PO Q4 PRN Pain, moderate (4-7) Al Hydrox/Mg Hydrox/Simethicone 30 ml 11/26/17 21:30 Maalox Plus 30 Ml PO Q4 PRN Dyspepsia Bismuth Subsalicylate 524 mg 11/26/17 21:30 Pepto-Bismol PO Q4 PRN Diarrhea Clonazepam 0.5 mg 11/26/17 22:08 11/27/17 00:31 Klonopin PO 0.5 mg BID PRN Administration anxiety/insomnia Divalproex Sodium 500 mg 11/26/17 22:15 11/26/17 22:[address](*Bid*) PO 500 mg HS JAMES Administration Lorazepam 0.5 mg 11/26/17 21:30 Ativan PO 12/10/17 21:31 HS PRN Insomnia Lorazepam 0.5 mg 11/26/17 21:30 Ativan PO 12/10/17 21:31 Q6 PRN Anixety/Agitation Magnesium Hydroxide 30 ml 11/26/17 21:30 Milk Of Magnesia PO HS PRN Constipation Zolpidem Tartrate 5 mg 11/26/17 22:08 11/26/17 23:04 Ambien PO 5 mg HS PRN Administration Insomnia Past Psychiatric History - Past Psychiatric History Previous Treatment History: None History of Abuse: denies History of ETOH/Drug Use: denies History of Family Illness: not known Pertinent Medical Hx (Current Medical&Sleep Prob, Allergies): Allergies Allergy/AdvReac Type Severity Reaction Status Date / Time No Known Allergies Allergy Verified 11/24/17 19:16 Aspirin [Adult Low Dose Aspirin EC] 81 mg PO DAILY 11/25/17 Canagliflozin [Invokana] 300 mg PO DAILY 11/25/17 Divalproex [Depakote DR] 500 mg PO HS 11/25/17 Ferrous Sulfate [Feosol] 325 mg PO DAILY 11/25/17 GlipiZIDE SR [Glucotrol XL] 5 mg PO BID 11/25/17 Insulin Lispro [Humalog (Insulin Lispro)] 20 units SC HS 11/25/17 Levothyroxine [Synthroid] 75 mcg PO DAILY 11/25/17 MetFORMIN [glucoPHAGE] 1,000 mg PO BID 11/25/17 Mv,Min10/Folic Acid/D3/Ala/Lut [Strovite One Caplet] 1 tab PO DAILY 11/25/17 [id number] Ethyl Esters [OMEGA 3] 1,000 mg PO BID 11/25/17 Omeprazole 40 mg PO DAILY 11/25/17 Ramipril [Altace] 10 mg PO DAILY 11/25/17 SITagliptin [Januvia] 100 mg PO DAILY 11/25/17 Simethicone [Mylicon Chew Tab] 80 mg PO TID 11/25/17 Zolpidem Tartrate [Ambien] 5 mg PO HS PRN 11/25/17 clonazePAM [Klonopin] 0.5 mg PO BID PRN 11/25/17 Enoxaparin [Lovenox] 40 mg SC DAILY 11/26/17 Insulin Detemir [Levemir] 5 units SC HS 11/26/17 Multivit,Calc,Mins/Iron/Folic [Therapeutic-M Tablet] 1 tab PO DAILY 11/26/17 Pantoprazole [Protonix EC Tab] 40 mg PO DAILY 11/26/17 pt has DM ,HTN,CAD and hypothyroidism Review of Systems - Review of Systems All systems: reviewed and no additional remarkable complaints except Mental Status Examination - Personal Presentation Personal Presentation: Looks stated age - Affect Affect: Constricted - Motor Activity Motor Activity: Calm - Reliability in Providing Information Reliability in Providing Information: Fair - Speech Speech: Relevant - Mood Mood: Depressed - Obsessions/Compulsions Obsessions: No Compulsions: No - Cognitive Functions Orientation: Person, Place, Situation, Time Sensorium: Alert Attention/Concentration: Easily distracted Abstract Thinking: Chamberlain Estimate of Intelligence: Average Judgement: Imparied, as evidence by: Poor judgement, Imparied, as evidence by: Lack of insight into illness Memory: Recent intact, as evidence by: Ability to recall events of the day, Remote intact, as evidenced by: Ability to recall historical events - Risk Risk: Diminished functioning - Strength & Assets Inventory Strength & Assets Inventory: Cooperative DSM 5 DX - DSM 5 DSM 5 Diagnosis: major depression,severe - Recommended/Plan of Treatment Treatment Recommendations and Plan of Treatment: Spoke with the pt the risks and benefits and rationale to start remeron 7.5 mg hs and pt agreed to plan to stabilize depression and titrate further as needed. Engage pt in therapy and groups. medical consult requested for routine follow up
[2017-11-27 08:35] LABS: ALB/GLOB RATIO 1.1 (1.0-2.1); ALBUMIN 3.8 g/dL (3.5-5.0); ALT/SGPT 31 U/L (9-52); AST/SGOT 28 U/L (14-36); BLOOD UREA NITROGEN 10 mg/dl (7-17); CALCIUM 9.1 mg/dL (8.4-10.2); GFR AFRICAN-AMERICAN > 60; GFR NON-AFRICAN AMERICAN > 60; HDL CHOLESTEROL 50 MG/DL (30-70)
[2017-11-27 08:44] LABS: LDL CHOLESTEROL 123 mg/dL (0-129)
[2017-11-27 08:50] LABS: T4 7.88 ug/dl (5.5-11.0)
[2017-11-27] MEDS ORDERED: Levothyroxine 75 MCG TAB PO SCH (09:00)
[2017-11-27 09:08] LABS: FERRITIN 59.7 ng/Ml (11.1-264.0)
[2017-11-27] MEDS: GlipiZIDE 5 mg SR Tab PO SCH ×2 (10:13→16:22)
[2017-11-27] MEDS: Multivitamin With Minerals Tab PO SCH (10:13)
[2017-11-27] MEDS: Omega-3-Acid Ethyl Esters 1 GM Cap PO SCH ×2 (10:13→16:22)
[2017-11-27] MEDS: Simethicone 80 mg Chewtab PO SCH ×3 (10:14→16:21)
[2017-11-27] MEDS: Pantoprazole 40 mg EC Tab PO SCH (10:20)
[2017-11-27] MEDS: Insulin Regular 100 units/ml SC SCH ×3 (12:22→21:25)
[2017-11-27] MEDS: Divalproex 500 mg DR(BID formulation) PO SCH (21:10)
[2017-11-27] MEDS: Insulin Detemir 100 Units/ml Inj SC SCH (21:18)
[2017-11-28] MEDS ORDERED: Levothyroxine 75 MCG TAB PO SCH (05:55)
[2017-11-28] MEDS: GlipiZIDE 5 mg SR Tab PO SCH ×2 (08:26→17:13)
[2017-11-28] MEDS: Multivitamin With Minerals Tab PO SCH (08:26)
[2017-11-28] MEDS: Omega-3-Acid Ethyl Esters 1 GM Cap PO SCH ×2 (08:27→17:14)
[2017-11-28] MEDS: Pantoprazole 40 mg EC Tab PO SCH (08:28)
[2017-11-28] MEDS: Insulin Regular 100 units/ml SC SCH ×4 (08:29→21:41)
[2017-11-28] MEDS: Simethicone 80 mg Chewtab PO SCH ×3 (08:29→17:14)
--- NOTE | 2017-11-28 09:56 | PN ---
DATE: 11/28/2017 SUBJECTIVE: The patient is seen and examined. The patient is seen for Dr. Hernandes while he is away. The patient is sleepy and arousable. Feels okay. Denies any specific medical complaints. No chest pain. No shortness of breath. PHYSICAL EXAMINATION: GENERAL: The patient is in no acute distress. VITAL SIGNS: Stable. HEART: S1 and S2, normal and regular. LUNGS: Good bilateral air exchange. ABDOMEN: Soft and nontender. EXTREMITIES: No edema. No calf swelling. No tenderness. No acute ischemia. CENTRAL NERVOUS SYSTEM: Essentially unchanged. DIAGNOSTIC DATA: Available diagnostic data reviewed. TSH is elevated. PLAN: Plan as ordered. Case and plan discussed with nursing staff and the patient. Bradley Lowery MD
--- NOTE | 2017-11-28 17:29 | PCM.PYCHPN ---
Psychiatric Progress Note - Psychiatric Progress Note Patient seen today, length of contact: pt seen and evaluated Patient Chief Complaint: pt has been less depressed and less anxious and slept better with remeron and has better appetite but still with poor insight and need stabilization. Medication Change: No Medical Record Reviewed: Yes Mental Status Examination - Cognitive Function Orientation: Person, Place Memory: Intact Attention: Poor Concentration: Poor Association: WNL Fund of Knowledge: WNL - Mood Mood: Depressed - Affect Affect: Constricted - Speech Speech: Appropriate - Formal Thought Process Formal Thought Process: No Impairment - Suicidal Ideation Suicidal Ideation: No - Homicidal Ideation Homicidal Ideation: No Goal/Treatment Plan - Goal/Treatment Plan Progress Toward Problem(s) and Goals/Treatment Plan: will continue to titrate meds to stabilize pt and engage in therspy.
[2017-11-28] MEDS: Divalproex 500 mg DR(BID formulation) PO SCH (21:39)
[2017-11-28] MEDS: Insulin Detemir 100 Units/ml Inj SC SCH (21:42)
[2017-11-29] MEDS: Levothyroxine 100 MCG TAB PO SCH (06:30)
--- NOTE | 2017-11-29 08:30 | PCM.PYCHPN ---
Psychiatric Progress Note - Psychiatric Progress Note Patient seen today, length of contact: Patient evaluated, case discussed with team, chart reviewed Patient Chief Complaint: "I'm depressed." Problems Identified/Issues Discussed: Patient continues to report feeling depressed w/ low mood, anhedonia, difficulty concentrating, poor sleep and appetite. We discussed continued titration of Remeron. He reports feeling hopeless/helpless but denies acute SI /HI. No AH/VH/paranoia/delusions. No adverse effects to medications reported. Medication Change: Yes (Increase Remeron) Medical Record Reviewed: Yes Consults ordered or reviewed: Medicine consult Mental Status Examination - Cognitive Function Orientation: Person, Place, Situation Memory: Intact Attention: Poor Concentration: Poor Association: WNL Fund of Knowledge: WNL - Mood Mood: Depressed - Affect Affect: Constricted, Depressed - Speech Speech: Appropriate - Formal Thought Process Formal Thought Process: No Impairment Psychotic Thoughts and Behaviors: No AH/VH/paranoia/delusions - Suicidal Ideation Suicidal Ideation: No - Homicidal Ideation Homicidal Ideation: No Goal/Treatment Plan - Goal/Treatment Plan Need for Continued Stay: Severe depression anxiety, Discharge may exacerbated symptoms Progress Toward Problem(s) and Goals/Treatment Plan: Major Depressive Disorder -Increase Remeron to 15 mg PO HS -Individual and group therapy -Disposition planning -Psychoeducation -Medicine consult Estimated Date of D/C: 12/03/17
--- NOTE | 2017-11-29 09:18 | PN ---
DATE: 11/29/2017 MEDICAL FOLLOWUP SUBJECTIVE: The patient is seen and examined. Interim events noted. Psychiatric followup and interventions noted and appreciated. The patient remains in [facility], , arousable. Denies any specific medical complaints. No chest pain or shortness of breath. PHYSICAL EXAMINATION: GENERAL: The patient is in no acute distress. VITAL SIGNS: Stable. HEART: S1 and S2, normal and regular. LUNGS: Good bilateral air exchange. ABDOMEN: Soft and nontender. EXTREMITIES: No edema, no calf swelling. No tenderness. No acute ischemia. CENTRAL NERVOUS SYSTEM: Exam is essentially unchanged. DIAGNOSTIC DATA: Available diagnostic data reviewed. PLAN: Overall, the patient's general medical condition is stable. Plan as ordered. Bradley Lowery MD
[2017-11-29] MEDS: Omega-3-Acid Ethyl Esters 1 GM Cap PO SCH ×2 (09:19→17:43)
[2017-11-29] MEDS: Insulin Regular 100 units/ml SC SCH ×4 (09:19→21:05)
[2017-11-29] MEDS: GlipiZIDE 5 mg SR Tab PO SCH ×2 (09:19→17:43)
[2017-11-29] MEDS: Pantoprazole 40 mg EC Tab PO SCH (09:20)
[2017-11-29] MEDS: Multivitamin With Minerals Tab PO SCH (09:20)
[2017-11-29] MEDS: Simethicone 80 mg Chewtab PO SCH ×3 (09:20→17:42)
[2017-11-29 17:27] LABS: FOLATE > 20.0 ng/mL
[2017-11-29] MEDS: Divalproex 500 mg DR(BID formulation) PO SCH (21:05)
[2017-11-29] MEDS: Insulin Detemir 100 Units/ml Inj SC SCH (21:07)
[2017-11-30] MEDS: Levothyroxine 100 MCG TAB PO SCH (05:52)
[2017-11-30] MEDS: Omega-3-Acid Ethyl Esters 1 GM Cap PO SCH ×2 (08:22→16:16)
[2017-11-30] MEDS: Multivitamin With Minerals Tab PO SCH (08:23)
[2017-11-30] MEDS: Simethicone 80 mg Chewtab PO SCH ×3 (08:23→16:16)
[2017-11-30] MEDS: GlipiZIDE 5 mg SR Tab PO SCH ×2 (08:23→16:16)
[2017-11-30] MEDS: Pantoprazole 40 mg EC Tab PO SCH (08:24)
[2017-11-30] MEDS: Insulin Regular 100 units/ml SC SCH ×4 (08:25→22:45)
--- NOTE | 2017-11-30 08:52 | PN ---
DATE: 11/30/2017 SUBJECTIVE: The patient is seen and examined. Interim events noted. Psychiatry followup and intervention noted and appreciated. The patient remains in [facility]. Sleeping, arousable. Does not want to get into conversation. Denies any specific medical complaint of chest pain or shortness of breath. PHYSICAL EXAMINATION: GENERAL: The patient is in no acute distress. VITAL SIGNS: Stable. Physical exam is essentially unchanged. DIAGNOSTIC DATA: Available diagnostic data reviewed. PLAN: Overall, the patient's general medical condition is stable. Plan as ordered. Bradley Lowery MD
--- NOTE | 2017-11-30 12:08 | PCM.PYCHPN ---
Psychiatric Progress Note - Psychiatric Progress Note Patient seen today, length of contact: Patient evaluated, case discussed with team, chart reviewed Patient Chief Complaint: "I'm depressed." Problems Identified/Issues Discussed: Patient reports that she continues to feel depressed with poor sleep, appetite, low mood, low energy. She is a poor historian and is unable to remember what medications she takes. Medication history was obtained from pharmacy and patient was taking Depakote and Seroquel prior to admission. Patient has a history of bipolar disorder, but does not recall this. We discussed increasing Depakote and Seroquel and stopping remeron. No adverse effects to medication reported. No AH/VH/paranoia/delusions. DSM 5 Symptoms Update: Bipolar Disorder Medication Change: Yes (Stop Remeron; restart Seroquel and increase Depakote) Medical Record Reviewed: Yes Consults ordered or reviewed: Medicine consult Mental Status Examination - Cognitive Function Orientation: Person, Place, Situation Memory: Intact Attention: Poor Concentration: Poor Association: WNL Fund of Knowledge: WNL Decription of patient's judgement and insights: Poor I/J - Mood Mood: Depressed - Affect Affect: Constricted, Depressed - Speech Speech: Appropriate - Formal Thought Process Formal Thought Process: Loosening of associations Psychotic Thoughts and Behaviors: No AH/VH/paranoia/delusions - Suicidal Ideation Suicidal Ideation: No - Homicidal Ideation Homicidal Ideation: No Goal/Treatment Plan - Goal/Treatment Plan Need for Continued Stay: Remain at risks for inpatient hospitalization, Severe depression anxiety, Discharge may exacerbated symptoms, Severe functional impairment Progress Toward Problem(s) and Goals/Treatment Plan: Bipolar Disorder -Stop Remeron -Increase Depakote -Restart Seroquel -Individual and group therapy -Disposition planning -Psychoeducation -Medicine consult Estimated Date of D/C: 12/06/17
[2017-11-30] MEDS: Divalproex 500 mg DR(BID formulation) PO SCH (16:16)
[2017-11-30 16:53] LABS: SQUAMOUS EPITHIAL < 1 /hpf (0-5); URINE BILIRUBIN NEGATIVE (NEGATIVE); URINE BLOOD NEGATIVE (NEGATIVE); URINE CLARITY SLIGHTY-CLOUDY (Clear); URINE COLOR YELLOW (YELLOW); URINE GLUCOSE (UA) NEG (Normal); URINE LEUKOCYTE ESTERASE TRACE Leu/uL (Negative); URINE PROTEIN NEGATIVE (NEGATIVE); URINE UROBILINOGEN 0.2-1.0 mg/dL (0.2-1.0)
[2017-11-30] MEDS ORDERED: Divalproex 500 mg DR(BID formulation) PO SCH (17:00)
[2017-11-30] MEDS: Insulin Detemir 100 Units/ml Inj SC SCH (21:14)
[2017-12-01] MEDS: Levothyroxine 100 MCG TAB PO SCH (05:40)
--- NOTE | 2017-12-01 08:08 | PN ---
DATE: 12/01/2017 MEDICAL FOLLOWUP SUBJECTIVE: The patient is seen and examined. Interim events noted. Psychiatry followup and interventions noted and appreciated. The patient remains in [facility]. The patient is awake, responsive, feels okay, complains of poor appetite, although according to nursing staff, the patient eats adequately when the patient's family brings the food. No chest pain. No shortness of breath. PHYSICAL EXAMINATION: GENERAL: The patient is in no acute distress. VITAL SIGNS: Stable. HEART: S1 and S2, normal and regular. LUNGS: Good bilateral air exchange. ABDOMEN: Soft and nontender. EXTREMITIES: No edema, no calf swelling. No tenderness. No acute ischemia. CENTRAL NERVOUS SYSTEM: Exam is essentially unchanged. DIAGNOSTIC DATA: Available diagnostic data reviewed. PLAN: Overall, the patient's general medical condition is stable. Plan as ordered. Bradley Lowery MD
[2017-12-01] MEDS: Simethicone 80 mg Chewtab PO SCH ×3 (08:21→16:13)
[2017-12-01] MEDS: Divalproex 500 mg DR(BID formulation) PO SCH ×2 (08:22→16:14)
[2017-12-01] MEDS: Multivitamin With Minerals Tab PO SCH (08:23)
[2017-12-01] MEDS: GlipiZIDE 5 mg SR Tab PO SCH ×2 (08:23→16:13)
[2017-12-01] MEDS: Omega-3-Acid Ethyl Esters 1 GM Cap PO SCH ×2 (08:24→16:15)
[2017-12-01] MEDS: Insulin Regular 100 units/ml SC SCH ×4 (08:24→21:08)
[2017-12-01] MEDS: Pantoprazole 40 mg EC Tab PO SCH (08:24)
[2017-12-01] MEDS ORDERED: Divalproex 250 mg DR(BID formulation) PO SCH (09:00)
--- NOTE | 2017-12-01 09:50 | PCM.PYCHPN ---
Psychiatric Progress Note - Psychiatric Progress Note Patient seen today, length of contact: Patient evaluated, case discussed with team, chart reviewed Patient Chief Complaint: "I'm depressed." Problems Identified/Issues Discussed: Patient continues to have neurovegetitive symptoms. She continues to lie in bed all day and only gets out with staff encouragement. She continues to report depression, poor sleep/appetite, low mood, low energy. We discussed continued titration of Seroquel. No adverse effects to medication reported. No AH/VH/paranoia/delusions. Medication Change: Yes (Increase Seroquel) Medical Record Reviewed: Yes Consults ordered or reviewed: Medicine consult Mental Status Examination - Cognitive Function Orientation: Person, Place, Situation Memory: Intact Attention: Poor Concentration: Poor Association: WNL Fund of Knowledge: WNL Decription of patient's judgement and insights: Poor I/J - Mood Mood: Depressed - Affect Affect: Constricted, Depressed - Speech Speech: Appropriate - Formal Thought Process Formal Thought Process: Loosening of associations Psychotic Thoughts and Behaviors: No AH/VH/paranoia/delusions - Suicidal Ideation Suicidal Ideation: No - Homicidal Ideation Homicidal Ideation: No Goal/Treatment Plan - Goal/Treatment Plan Need for Continued Stay: Remain at risks for inpatient hospitalization, Severe depression anxiety, Discharge may exacerbated symptoms, Severe functional impairment Progress Toward Problem(s) and Goals/Treatment Plan: Bipolar Disorder -Continue Depakote -Increase Seroquel -Individual and group therapy -Collateral history obtained from patient's daughter -Disposition planning -Psychoeducation -Medicine consult Estimated Date of D/C: 12/06/17
[2017-12-01] MEDS: Insulin Detemir 100 Units/ml Inj SC SCH (21:05)
[2017-12-02] MEDS: Levothyroxine 100 MCG TAB PO SCH (06:07)
[2017-12-02] MEDS: Insulin Regular 100 units/ml SC SCH ×4 (08:00→21:09)
[2017-12-02] MEDS: Divalproex 500 mg DR(BID formulation) PO SCH ×2 (09:21→18:04)
[2017-12-02] MEDS: Omega-3-Acid Ethyl Esters 1 GM Cap PO SCH ×2 (09:21→18:04)
[2017-12-02] MEDS: Multivitamin With Minerals Tab PO SCH (09:21)
[2017-12-02] MEDS: GlipiZIDE 5 mg SR Tab PO SCH ×2 (09:22→18:04)
[2017-12-02] MEDS: Pantoprazole 40 mg EC Tab PO SCH (09:22)
[2017-12-02] MEDS: Simethicone 80 mg Chewtab PO SCH ×3 (09:22→21:08)
--- NOTE | 2017-12-02 09:40 | PN ---
DATE: 12/02/2017 SUBJECTIVE: The patient is seen and examined. Interim events noted. Psychiatry followup and intervention noted and appreciated. The patient remains in [facility]. The patient is sleeping, arousable. Denies any specific medical complaints. No specific issue reported by nursing staff. PHYSICAL EXAMINATION: GENERAL: The patient is in no acute distress. VITAL SIGNS: Stable. Physical exam is essentially unchanged. DIAGNOSTIC DATA: Available diagnostic data reviewed. PLAN: Overall, the patient is medically stable. Plan as ordered. Bradley Lowery MD
--- NOTE | 2017-12-02 09:40 | PCM.PYCHPN ---
Psychiatric Progress Note - Psychiatric Progress Note Patient seen today, length of contact: Patient evaluated, case discussed with team, chart reviewed Patient Chief Complaint: "I'm depressed." Problems Identified/Issues Discussed: Patient only eats w/ staff encouragement. Patient continues to have neurovegetitive symptoms. She continues to lie in bed all day. She continues to report depression, poor sleep/appetite, low mood, low energy. We discussed continued titration of Seroquel. No adverse effects to medication reported. No AH/VH/paranoia/delusions. Medication Change: Yes (Increase Seroquel) Medical Record Reviewed: Yes Consults ordered or reviewed: Medicine consult Mental Status Examination - Cognitive Function Orientation: Person, Place, Situation Memory: Intact Attention: Poor Concentration: Poor Association: WNL Fund of Knowledge: WNL Decription of patient's judgement and insights: Poor I/J - Mood Mood: Depressed - Affect Affect: Constricted, Depressed - Speech Speech: Appropriate - Formal Thought Process Formal Thought Process: Loosening of associations Psychotic Thoughts and Behaviors: No AH/VH/paranoia/delusions - Suicidal Ideation Suicidal Ideation: No - Homicidal Ideation Homicidal Ideation: No Goal/Treatment Plan - Goal/Treatment Plan Need for Continued Stay: Remain at risks for inpatient hospitalization, Severe depression anxiety, Discharge may exacerbated symptoms, Severe functional impairment Progress Toward Problem(s) and Goals/Treatment Plan: Bipolar Disorder; patient acutely decompensated w/ severe depression -Continue Depakote, will check VPA level -Increase Seroquel -Individual and group therapy -Collateral history obtained from patient's daughter -Disposition planning -Psychoeducation -Medicine consult Estimated Date of D/C: 12/06/17
[2017-12-02] MEDS: Insulin Detemir 100 Units/ml Inj SC SCH (21:07)
[2017-12-03 05:47] VITALS: RESP 18
[2017-12-03] MEDS: Levothyroxine 100 MCG TAB PO SCH (05:57)
[2017-12-03 07:51] LABS: BASO # 0.1 K/uL (0.0-0.2); BASO % 0.6 % (0.0-2.0); EOS # 0.1 K/uL (0.0-0.7); EOS % 1.2 % (0.0-4.0); HEMOGLOBIN 13.7 g/dL (12.0-16.0); LYMPH # 4.3 K/uL (1.0-4.3); LYMPH % 51.1 % (20.0-40.0); MEAN CELL VOLUME 90.3 fl (81.0-99.0); MEAN CORPUSCULAR HEMOGLOBIN 30.6 pg (27.0-31.0); MEAN CORPUSCULAR HGB CONC 33.9 g/dL (33.0-37.0); MEAN PLATELET VOLUME 8.5 fl (7.2-11.7); MONO # 0.4 K/uL (0.0-0.8); MONO % 5.3 % (0.0-10.0); NEUT # 3.5 K/uL (1.8-7.0); NEUT % 41.8 % (50.0-75.0); NRBC % 0.1 % (0.0-0.0); RBC 4.47 Mil/uL (3.80-5.20); RED CELL DISTRIBUTION WIDTH 14.5 % (11.5-14.5); WHITE BLOOD COUNT 8.4 K/uL (4.8-10.8)
[2017-12-03 08:05] LABS: ALB/GLOB RATIO 1.1 (1.0-2.1); ALBUMIN 3.2 g/dL (3.5-5.0); ALT/SGPT 33 U/L (9-52); AST/SGOT 21 U/L (14-36); BILIRUBIN,DIRECT 0.3 mg/ml (0.0-0.4); BLOOD UREA NITROGEN 14 mg/dl (7-17); CALCIUM 8.8 mg/dL (8.4-10.2); GFR AFRICAN-AMERICAN > 60; GFR NON-AFRICAN AMERICAN > 60
[2017-12-03] MEDS: Divalproex 500 mg DR(BID formulation) PO SCH ×2 (08:41→16:28)
[2017-12-03] MEDS: Multivitamin With Minerals Tab PO SCH (08:41)
[2017-12-03] MEDS: Omega-3-Acid Ethyl Esters 1 GM Cap PO SCH ×2 (08:42→16:27)
[2017-12-03] MEDS: Pantoprazole 40 mg EC Tab PO SCH (08:42)
[2017-12-03] MEDS: Simethicone 80 mg Chewtab PO SCH ×3 (08:43→16:27)
[2017-12-03] MEDS: Insulin Regular 100 units/ml SC SCH ×2 (08:43→16:31)
[2017-12-03] MEDS: GlipiZIDE 5 mg SR Tab PO SCH ×2 (08:43→16:28)
--- NOTE | 2017-12-03 09:23 | PN ---
DATE: 12/03/2017 SUBJECTIVE: The patient is seen and examined. Interim events noted. The patient remains in [facility]. Sleeping, arousable and feels okay. Denies any specific complaints of chest pain or shortness of breath. PHYSICAL EXAMINATION: GENERAL: The patient is in no acute distress. VITAL SIGNS: Stable. HEART: S1 and S2, normal and regular. LUNGS: Good bilateral air exchange. ABDOMEN: Soft and nontender. EXTREMITIES: No edema. No calf swelling. No tenderness. No acute ischemia. CENTRAL NERVOUS SYSTEM: Exam is essentially unchanged. DIAGNOSTIC DATA: Available diagnostic data reviewed. Accu-Cheks are acceptable. ASSESSMENT AND PLAN: Overall, the patient's general medical condition is stable. Plan as ordered. Bradley Lowery MD
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
--- NOTE | 2017-12-03 10:53 | PCM.PYCHPN ---
Psychiatric Progress Note - Psychiatric Progress Note Patient seen today, length of contact: Patient evaluated, case discussed with team, chart reviewed Patient Chief Complaint: "I'm depressed." Problems Identified/Issues Discussed: Patient is reports that her mood is improving, but that she continues to be depressed w/ low energy, low motivation, poor appetite and poor eating. No adverse effects to medication reported. No AH/VH/paranoia/delusions. Medication Change: No Medical Record Reviewed: Yes Consults ordered or reviewed: Medicine consult Mental Status Examination - Cognitive Function Orientation: Person, Place, Situation Memory: Intact Attention: Poor Concentration: Poor Association: WNL Fund of Knowledge: [facility] Decription of patient's judgement and insights: Poor I/J - Mood Mood: Depressed - Affect Affect: Constricted, Depressed - Speech Speech: Appropriate - Formal Thought Process Formal Thought Process: Loosening of associations Psychotic Thoughts and Behaviors: No AH/VH/paranoia/delusions - Suicidal Ideation Suicidal Ideation: No - Homicidal Ideation Homicidal Ideation: No Goal/Treatment Plan - Goal/Treatment Plan Need for Continued Stay: Remain at risks for inpatient hospitalization, Severe depression anxiety, Discharge may exacerbated symptoms, Severe functional impairment Progress Toward Problem(s) and Goals/Treatment Plan: Bipolar Disorder; patient acutely decompensated w/ severe depression -Continue Depakote, VPA 59.4 on 12/03/17 -Continue Seroquel -Individual and group therapy -Collateral history obtained from patient's daughter -Disposition planning -Psychoeducation -Medicine consult Estimated Date of D/C: 12/06/17
[2017-12-03] MEDS ORDERED: Potassium Chloride 20 mEq ER Tab PO ONE (11:34)
[2017-12-03] MEDS: Insulin Detemir 100 Units/ml Inj SC SCH (21:11)
[2017-12-04] MEDS: Levothyroxine 100 MCG TAB PO SCH (06:19)
[2017-12-04] MEDS: Divalproex 500 mg DR(BID formulation) PO SCH ×2 (08:32→16:59)
[2017-12-04] MEDS: Cholecalciferol 400 Intl Units Tab PO SCH ×2 (08:32→16:59)
[2017-12-04] MEDS: GlipiZIDE 5 mg SR Tab PO SCH ×2 (08:32→16:59)
[2017-12-04] MEDS: Pantoprazole 40 mg EC Tab PO SCH (08:33)
[2017-12-04] MEDS: Insulin Regular 100 units/ml SC SCH ×2 (08:33→16:58)
[2017-12-04] MEDS: Simethicone 80 mg Chewtab PO SCH ×3 (08:34→16:55)
[2017-12-04] MEDS: Omega-3-Acid Ethyl Esters 1 GM Cap PO SCH ×2 (08:34→16:55)
[2017-12-04] MEDS: Multivitamin With Minerals Tab PO SCH (08:35)
--- NOTE | 2017-12-04 09:35 | PN ---
DATE: 12/04/2017 SUBJECTIVE: The patient is seen and examined. Interim events noted. Psychiatry followup and interventions noted and appreciated. The patient remains in [facility]. The patient feels much better better. No chest pain or shortness of breath. PHYSICAL EXAMINATION: GENERAL: The patient is in no acute distress. VITAL SIGNS: Stable. HEART: S1 and S2, normal and regular. LUNGS: Good bilateral air exchange. ABDOMEN: Soft and nontender. EXTREMITIES: No edema. No calf swelling. No tenderness. No acute ischemia. CENTRAL NERVOUS SYSTEM: Essentially unchanged. DIAGNOSTIC DATA: Available diagnostic data reviewed. Accu-Cheks are acceptable. PLAN: Overall, the patient's general medical condition is stable. Plan as ordered. Bradley Lowery MD
[2017-12-04 18:18] LABS: ALB/GLOB RATIO 1.1 (1.0-2.1); ALBUMIN 3.6 g/dL (3.5-5.0); ALT/SGPT 28 U/L (9-52); AST/SGOT 28 U/L (14-36); BLOOD UREA NITROGEN 14 mg/dl (7-17); GFR AFRICAN-AMERICAN > 60; GFR NON-AFRICAN AMERICAN > 60
[2017-12-04] MEDS: Insulin Detemir 100 Units/ml Inj SC SCH (21:15)
[2017-12-05] MEDS: Levothyroxine 100 MCG TAB PO SCH (06:52)
[2017-12-05] MEDS: Omega-3-Acid Ethyl Esters 1 GM Cap PO SCH ×2 (08:30→17:32)
[2017-12-05] MEDS: Pantoprazole 40 mg EC Tab PO SCH (08:31)
[2017-12-05] MEDS: Cholecalciferol 400 Intl Units Tab PO SCH ×2 (08:31→17:33)
[2017-12-05] MEDS: Simethicone 80 mg Chewtab PO SCH ×3 (08:31→17:33)
[2017-12-05] MEDS: Multivitamin With Minerals Tab PO SCH (08:32)
[2017-12-05] MEDS: Divalproex 500 mg DR(BID formulation) PO SCH ×2 (08:32→17:32)
[2017-12-05] MEDS: Insulin Regular 100 units/ml SC SCH ×2 (08:33→17:30)
[2017-12-05] MEDS: GlipiZIDE 5 mg SR Tab PO SCH ×2 (08:34→17:33)
--- NOTE | 2017-12-05 14:02 | PCM.PYCHPN ---
Psychiatric Progress Note - Psychiatric Progress Note Patient seen today, length of contact: [place] [id number] evaluated, case discussed with team, chart reviewed Patient Chief Complaint: came to hospital for depression anxious , staff report pt isolative at times, complaining of sleeping well, staff report pt adherent with treatment at times requiring redirection to come out of room for meals, noted to have visitor who brought demetrius pt seen with visitor eating in social area Problems Identified/Issues Discussed: alteration in mood ?cognitive changes Medical Problems: per chart Diagnostic Results: per psychiatry per medicine per nursing per social work per chart Medication Change: No Medical Record Reviewed: Yes Consults ordered or reviewed: pt seen by hospitalist Mental Status Examination - Cognitive Function Orientation: Person, Place, Situation Memory: Intact Attention: Poor Concentration: Poor Association: WNL Fund of Knowledge: WNL Decription of patient's judgement and insights: impaired - Mood Mood: Depressed - Affect Affect: Constricted, Depressed - Speech Speech: Appropriate - Formal Thought Process Formal Thought Process: Loosening of associations - Suicidal Ideation Suicidal Ideation: No - Homicidal Ideation Homicidal Ideation: No Goal/Treatment Plan - Goal/Treatment Plan Need for Continued Stay: Remain at risks for inpatient hospitalization, Severe depression anxiety, Discharge may exacerbated symptoms, Severe functional impairment Progress Toward Problem(s) and Goals/Treatment Plan: inpt admission milieu vital signs and clinical observation per protocol and per status adjust meds from status discharge planning in progress Estimated Date of D/C: 12/06/17 - Smoking Cessation Smoking Cessation Initiated: No Reason for not providing: history denies
--- NOTE | 2017-12-05 14:08 | PCM.PYCHPN ---
Psychiatric Progress Note - Psychiatric Progress Note Patient seen today, length of contact: evaluated, case discussed with team, chart reviewed Patient Chief Complaint: seen out in milieu, pt seen to be walking in unit, had multiple visitors, reports slept better, pt report pt. is adherent with treament, pt denies side effects Problems Identified/Issues Discussed: alteration in mood ?cognitive changes Medical Problems: per chart Diagnostic Results: per psychiatry per medicine per nursing per social work per chart DSM 5 Symptoms Update: stabilizing of mood beginning, sleep improving Medication Change: No Medical Record Reviewed: Yes Consults ordered or reviewed: pt seen by hospitalist Mental Status Examination - Cognitive Function Orientation: Person, Place, Situation Memory: Intact Attention: Poor Concentration: Poor Association: WNL Fund of Knowledge: WNL Decription of patient's judgement and insights: impaired - Mood Mood: Depressed - Affect Affect: Constricted, Depressed - Speech Speech: Appropriate - Formal Thought Process Formal Thought Process: Loosening of associations - Suicidal Ideation Suicidal Ideation: No - Homicidal Ideation Homicidal Ideation: No Goal/Treatment Plan - Goal/Treatment Plan Need for Continued Stay: Remain at risks for inpatient hospitalization, Severe depression anxiety, Discharge may exacerbated symptoms, Severe functional impairment Progress Toward Problem(s) and Goals/Treatment Plan: inpt admission milieu vital signs and clinical observation per protocol and per status adjust meds from status 11/1817 vpa level 60.1 access to prn mongolian staff discharge planning in progress Estimated Date of D/C: 12/06/17 - Smoking Cessation Smoking Cessation Initiated: No Reason for not providing: pt defers
[2017-12-05] MEDS: Insulin Detemir 100 Units/ml Inj SC SCH (21:13)
[2017-12-06 03:56] LABS: SQUAMOUS EPITHIAL < 1 /hpf (0-5); URINE BILIRUBIN NEGATIVE (NEGATIVE); URINE BLOOD NEGATIVE (NEGATIVE); URINE CLARITY SLIGHTY-CLOUDY (Clear); URINE COLOR YELLOW (YELLOW); URINE GLUCOSE (UA) NEG (Normal); URINE LEUKOCYTE ESTERASE TRACE Leu/uL (Negative); URINE PROTEIN NEGATIVE (NEGATIVE)
[2017-12-06] MEDS: Levothyroxine 100 MCG TAB PO SCH (05:53)
[2017-12-06] MEDS: Cholecalciferol 400 Intl Units Tab PO SCH ×2 (08:24→16:16)
[2017-12-06] MEDS: Pantoprazole 40 mg EC Tab PO SCH (08:24)
[2017-12-06] MEDS: Divalproex 500 mg DR(BID formulation) PO SCH ×2 (08:24→16:12)
[2017-12-06] MEDS: Simethicone 80 mg Chewtab PO SCH ×3 (08:25→16:12)
[2017-12-06] MEDS: Multivitamin With Minerals Tab PO SCH (08:25)
[2017-12-06] MEDS: GlipiZIDE 5 mg SR Tab PO SCH ×2 (08:25→16:12)
[2017-12-06] MEDS: Omega-3-Acid Ethyl Esters 1 GM Cap PO SCH ×2 (08:26→16:12)
[2017-12-06] MEDS: Insulin Regular 100 units/ml SC SCH ×2 (08:27→16:13)
--- NOTE | 2017-12-06 08:43 | PCM.PYCHPN ---
Psychiatric Progress Note - Psychiatric Progress Note Patient seen today, length of contact: Pt evaluated, case discussed with team, chart reviewed Patient Chief Complaint: "I'm feeling better." Problems Identified/Issues Discussed: Patient reports that her mood is improving. She reports improved appetite and sleep. She is more goal oriented and hopeful. No adverse effects to medication reported. No AH/VH/paranoia/delusions. Medication Change: No Medical Record Reviewed: Yes Consults ordered or reviewed: Medicine consult, Psychology consult Mental Status Examination - Cognitive Function Orientation: Person, Place, Situation Memory: Impaired (Chronic impairments in memory, attention, concentration, association due to demenita) Attention: Poor Concentration: Poor Association: WNL Fund of Knowledge: Poor - Mood Mood: Neutral - Affect Affect: Constricted - Speech Speech: Appropriate - Formal Thought Process Formal Thought Process: Loosening of associations Psychotic Thoughts and Behaviors: No AH/VH/paranoia/delusions - Suicidal Ideation Suicidal Ideation: No - Homicidal Ideation Homicidal Ideation: No Goal/Treatment Plan - Goal/Treatment Plan Need for Continued Stay: Discharge may exacerbated symptoms Progress Toward Problem(s) and Goals/Treatment Plan: Bipolar Disorder; Dementia. Patient is improving clinically and will likely be discharged to home tomorrow -Continue Depakote, VPA 60 on 12/03/17 -Continue Seroquel -Individual and group therapy -Collateral history obtained from patient's daughter -Disposition planning -Psychoeducation -Medicine consult -Psychology consult Estimated Date of D/C: 12/07/17
[2017-12-06] MEDS ORDERED: Cholecalciferol 400 Intl Units Tab PO SCH (09:00)
--- NOTE | 2017-12-06 10:18 | PN ---
DATE: 12/06/2017 SUBJECTIVE: The patient is seen and examined. Interim events noted. Psychiatric followup and intervention noted and appreciated. The patient remains in Geropsychiatry Unit. The patient feels okay. Denies any specific medical complaint. No chest pain or shortness of breath. PHYSICAL EXAMINATION: GENERAL: The patient is in no acute distress. VITAL SIGNS: Stable. Physical exam is essentially unchanged. DIAGNOSTIC DATA: Available diagnostic data reviewed. IMPRESSION AND PLAN: Overall, the patient's general medical condition is stable. Plan as ordered. Bradley Lowery MD
--- NOTE | 2017-12-06 12:10 | PCM.BM ---
Treatment Plan Problems - Problems identified on initial assessmt Hopelessness/Helplessness Date Initiated: 11/26/17 Time Initiated: 21:32 Assessment reference: NA Status: Active Treatment assets and liabiliti Patient Assests: cooperative, good support system, negotiates basic needs Patient Liabilities: live alone, medical problems - Milieu Protocol Maintain good personal hygiene: daily Encourage regular showers, daily Remind patient to perform daily oral care, daily Assist patient to perform ADL's Conduct patient checks and document Observation sheet: Q15 minutes Maintain personal safety: every shift Educate patient to report safety concerns to staff, every shift Monitor environment for contraband/sharps Medication safety: Monitor for expected outcome, potential side effects: every shift, Assess barriers to learning: every shift, Assess readiness for medication education: every shift Milieu Narrative: Bipolar Disorder; Dementia. Patient is improving clinically and will likely be discharged to home tomorrow -Continue Depakote, VPA 60 on 12/03/17 -Continue Seroquel -Individual and group therapy -Collateral history obtained from patient's daughter -Disposition planning -Psychoeducation -Medicine consult -Psychology consult Family Contact Family involvement: Family/SO is involved Family contact: Patient agrees to contact, Family has been contacted by patient , Telephone contact initiated by staff Family contact name: Melo Mireles - son Family contacted how many times per week?: 2 Family contact comment: [phone] - Outside Agency Dr. Alessandra Umaña MD Care involvment: Information-sharing Agency contact name: Dr. Chasidy MD Agency contact number: [facility], [facility] Care involvment: Information-sharing Agency contact number: - Goals for Treatment Patient goals for treatment: Pt to be encouraged to attend activity and clinical groups 3-5x per week to identify at least 2 contributing factors to depression and suicide attempt. Psycho-education to be provided to patient/ family regarding benefits of medications and treatment adherence. Pt to be encouraged to participate in group milieu to develop effective coping skills to reduce depression and free of suicide ideation. Coordinate discharge resource needs by providing referral for psychiatric treatment follow up in the community. Discharge/Continuing Care - Education Needs Education Needs: Family Medication, Family Diagnosis/Disease Process, Family Coping Skills, Family Community resources, Family Activities of Daily Living, Family Health Practices/Safety, Family Personal Hygiene/Grooming, Family Aftercare Safety Plan, Patient Medication, Patient Diagnosis/Disease Process, Patient Coping Skills, Patient Community resources, Patient Activities of Daily Living, Patient Health Practices/Safety, Patient Personal Hygiene/Grooming, Patient Aftercare Safety Plan - Discharge Discharge Criteria: Tolerates medication w/o severe side effects, Normal sleep pattern, Ability to care for self, Reduction of target symptoms, Other ( Decreased depressive symptoms) Discharge to:: Home, With Family - Additional Comments 11/29/17 12:46 Pt seen and discussed in team meeting. Reason for hospitalization reviewed and discussed. Pt reported feeling "depressed" for a very long time. Pt reported decreased appetite resulting in weight loss (unknown lbs). Pt also reported poor sleep patter, 1-2 hours daily. Pt reported being prescribed medication by her [employer] psychiatrist, Dr. Alessandra Umaña MD however feels as if they are not working effectively. Pt reported no improvement in mood with medications. Pt denied SI and HI. Pt denied AVH. Pt denied any paranoia. Pt resides with her son , Melo Mireles and is linked to [facility] services via [facility], Wednesday through Wednesday for 4 hours and on Wednesday for 5 hours. Pt reported feeling "bad" at the present time. Pt is poverty of speech. Pt's medical issues and social issues reviewed. Pt's medications reviewed. Pt agreeable with RN contacting her pharmacy, [facility] for MAR report. Pt unable to explain why she is prescribed Depakote. Tx plan reviewed and pt agreeable. SW to continue to follow case. Pt signed consent form for son, Melo. SW will contact son for collateral information. - Treatment Team Participation Patient/Family/SO Statement: Bipolar Disorder; Dementia. Patient is improving clinically and will likely be discharged to home tomorrow -Continue Depakote, VPA 60 on 12/03/17 -Continue Seroquel -Individual and group therapy -Collateral history obtained from patient's daughter -Disposition planning -Psychoeducation -Medicine consult -Psychology consult Discussed with Family/SO: No Was Patient/Family/SO present at Treatment Team Meeting: Yes Treatment Plan Review Family/SO/Caregiver participation: No Additional Comments: Pt seen and discussed in team meeting. Pt's progress on the unit reviewed and discussed. Pt reported clinical improvement since admission. Pt reported feeling "more calm" and "eating more." Pt reported that her mood is "good." Pt reported feeling less anxious. Pt denied feelings of depression. Pt reported that her sleep is "better." Pt inquiring about discharge and return back home. Pt informed that she will be discharged tomorrow, december 07. Pt verbalized agreement. Pt's medications reviewed and discussed. Mechanical Engineering Technician reviewed after care referrals for [facility], [facility] services and outpatient services. Pt reported that she was scheduled to follow up with psychiatrist, Dr. Chasidy MD last Wednesday but missed appointment due to hospitalization. Pt provided life insurance underwriter with verbal authorization to contact the MD and re-schedule appointment. Pt reported that she is agreeable with [facility] services resuming upon discharge. Pt refused [facility] stating "I don't like the environment there. People are sicker than me and it's depressing." Pt also provided life insurance underwriter with verbal authorization to contact her daughter and review discharge. - Problem Hopelessness/Helplessness Date Initiated: 11/26/17 Time Initiated: 21:32 Progress toward outcomes: improved - Discharge / Continuing Care Discharge to:: Home, With Family Behavioral Health Services: Outpatient therapy, Home health care, Other ( Medication Management)
--- NOTE | 2017-12-06 14:39 | PN ---
DATE: 12/06/2017 MEDICAL FOLLOWUP SUBJECTIVE: The patient is seen and examined. Interim events noted. Consults noted and appreciated. Psychiatry followup and interventions noted and appreciated. The patient remains in Geropsychiatry unit for possible discharge tomorrow. Feels okay. Denies any specific complaints. No chest pain or shortness of breath. PHYSICAL EXAMINATION: GENERAL: The patient is in no acute distress. VITAL SIGNS: Stable. HEENT: S1 and S2, normal and regular. LUNGS: Good bilateral air exchange. ABDOMEN: Soft and nontender. EXTREMITIES: No edema. No calf swelling. No tenderness. No acute ischemia. CENTRAL NERVOUS SYSTEM: Exam is essentially unchanged. DIAGNOSTIC DATA: Available diagnostic data reviewed. ASSESSMENT AND PLAN: The patient's general medical condition is stable. Plan as ordered. Bradley Lowery MD
[2017-12-06] MEDS: Insulin Detemir 100 Units/ml Inj SC SCH (21:06)
[2017-12-07] MEDS: Levothyroxine 100 MCG TAB PO SCH (05:35)
[2017-12-07 05:42] VITALS: BP 135/67; PULSE 82; TEMP 98.1
--- NOTE | 2017-12-07 08:38 | PCM.PYCHDC ---
Mental Status Examination - Mental Status Examination Orientation: Person, Place, Situation Memory: Impaired (Chronic memory deficits due to dementia) Mood: Neutral Affect: Broad Speech: Appropriate Attention: Poor Concentration: Poor Association: WNL Fund of Knowledge: WNL Formal Thought Process: No Impairment Description of patient's judgement and insight: Limited I/J due to dementia Psychotic Thoughts and Behaviors: No AH/VH/paranoia/delusions Suicidal Ideation: No Current Homicidal Ideation?: No Discharge Summary - Discharge Note Reason for Hospitalization: Initial HPI note: This is a 72 year old female with h/o severe depression, transferred from[address] [place] [address] because of severe depression,with helplessness and hopelessness and initially admitted for chest pain and has h/o one previous admission to [facility] following a suicidal attempt by overdose on pills,.pt reports feeling very depressed for several months and feels lonely as she is by herself and c/o anhedonia,poor sleep and poor appetite and feelings if hopelessness. Laboratory Data: Abnormal Lab Results 12/06/17 12/07/17 12/07/17 15:35 05:32 06:20 POC Glucose (mg/dL) 110 55 L 93 Consultations:: List each consultation separately and include: 1. Reason for request. 2. Findings. 3. Follow-up Consultations: Medicine consult, Psychology consult Summary of Hospital Course include:: 1. Description of specific treatment plan utilized for patients during their course of treatmen. 2. Summarize the time- course for resolution of acute symptoms and/or regressed behaviors. 3. Describe issues identified and worked on during hospitalization. 4. Describe medication utilized. 5. Describe medical problems identified and treated. 6. Reassessment of suicide risk Summary of Hospital Course: Patient was admitted to the psychiatry unit. Individual and group therapy were provided. Patient was stabilized on Seroquel and Depakote. She reports improvement in mood. She has improved sleep and appetite. She is currently psychiatrically stable for discharge. Psychoeducation provided to the patient and her family. - Diagnosis (1) Bipolar disorder Current Visit: Yes Status: Chronic (2) Dementia Current Visit: Yes Status: Chronic - Final Diagnosis (DSM 5) Condition upon Discharge: STABLE DSM 5: Bipolar Disorder; Dementia Disposition: HOME/ ROUTINE Follow-up Treatment Plan: Bipolar Disorder; Dementia. Patient is psychiatrically stable for discharge w/ continued outpatient follow-up. -Continue Depakote, VPA 60 on 12/03/17 -Continue Seroquel Prescriptions/Medication Reconciliation: Atorvastatin [Lipitor] 20 mg PO DAILY #30 tab Divalproex [Depakote DR(*BID*)] 500 mg PO BID #60 tcp Levothyroxine [Synthroid] 100 mcg PO DAILY@0630 #30 tab LORazepam [Ativan] 0.5 mg PO HS PRN #30 tab PRN Reason: Anxiety Quetiapine Fumarate [Seroquel] 400 mg PO HS #30 tablet - Smoking Cessation Smoking Cessation Medication prescribed: No Reason for not providing: Not indicated - Antipsychotic Medications Pt discharged on 2 or more routine antipsychotic medications: No
[2017-12-07] MEDS: Omega-3-Acid Ethyl Esters 1 GM Cap PO SCH (09:00)
[2017-12-07] MEDS: Multivitamin With Minerals Tab PO SCH (09:00)
[2017-12-07] MEDS: GlipiZIDE 5 mg SR Tab PO SCH (09:00)
[2017-12-07] MEDS: Divalproex 500 mg DR(BID formulation) PO SCH (09:01)
[2017-12-07] MEDS: Cholecalciferol 400 Intl Units Tab PO SCH (09:01)
[2017-12-07] MEDS: Pantoprazole 40 mg EC Tab PO SCH (09:02)
[2017-12-07] MEDS: Simethicone 80 mg Chewtab PO SCH (09:02)
[2017-12-07] MEDS: Insulin Regular 100 units/ml SC SCH (09:14)
--- NOTE | 2017-12-07 09:46 | PN ---
DATE: 12/07/2017 SUBJECTIVE: The patient is seen and examined. Interim events noted. Psychiatric followup and intervention noted and appreciated. The patient remains in [facility]. The patient feels okay. Denies any specific complaint of chest pain or shortness of breath. OBJECTIVE: GENERAL: The patient is in no acute distress. VITAL SIGNS: Stable. HEART: S1 and S2, normal and regular. LUNGS: Good bilateral air exchange. ABDOMEN: Soft and nontender. EXTREMITIES: No edema, no calf swelling. No tenderness. No acute ischemia. CENTRAL NERVOUS SYSTEM: Essentially unchanged. DIAGNOSTIC DATA: Available diagnostic data reviewed. PLAN: Overall, the patient's general medical condition is stable. The patient is medically stable for discharge. Plan as ordered. Case and plan discussed with psychiatrist and older adult social work specialist. The patient will be followed up by primary care physician, Dr. Hernandes next week. Case and plan also discussed with the patient. Bradley Lowery MD
--- NOTE | 2017-12-07 10:01 | PN ---
DATE: 12/07/2017 MEDICAL FOLLOWUP SUBJECTIVE: The patient is seen and examined. Interim events noted. Consults noted and appreciated. Psychiatry followup and interventions noted and appreciated. The patient remains in [facility], but possible discharge today. The patient feels okay. Denies any specific medical complaints. No chest pain, no shortness of breath. PHYSICAL EXAMINATION: GENERAL: The patient is in no acute distress. VITAL SIGNS: Stable. HEART: S1 and S2, normal and regular. LUNGS: Good bilateral air exchange. ABDOMEN: Soft and nontender. EXTREMITIES: No edema. No calf swelling. No tenderness. No acute ischemia. CENTRAL NERVOUS SYSTEM: Essentially unchanged. DIAGNOSTIC DATA: Available diagnostic data reviewed. PLAN: Overall, the patient's general medical condition is stable. The patient is for discharge home today. The patient will be followed up by next week. Case and plan discussed with the patient. Bradley Lowery MD
== END 2017-12-07 13:30 | disposition home or self-care (01) | DRG 885 ==
LOC: H.STEP 21:20
PROVIDERS: ADMIT Psychiatry & Neurology Psychiatry; ATTEND Psychiatry & Neurology Psychiatry
PROC: GZ51ZZZ Individual Psychotherapy, Behavioral (ICD-10-PCS; 2017-11-27)
PROC: F07M6FZ Therapeutic Exercise Treatment of Musculoskeletal System - Whole Body using Assistive, Adaptive, Supportive or Protective Equipment (ICD-10-PCS; principal; 2017-12-01)
DX: F31.4 Bipolar disorder, current episode depressed, severe, without psychotic features (principal); I10 Essential (primary) hypertension; Z90.49 Acquired absence of other specified parts of digestive tract; Z91.5 Personal history of self-harm; D64.9 Anemia, unspecified; K82.9 Disease of gallbladder, unspecified; R41.89 Other symptoms and signs involving cognitive functions and awareness; R63.0 Anorexia; R63.4 Abnormal weight loss; E03.9 Hypothyroidism, unspecified; E11.9 Type 2 diabetes mellitus without complications; F03.90 Unspecified dementia, unspecified severity, without behavioral disturbance, psychotic disturbance, mood disturbance, and anxiety

== ENCOUNTER 2018-05-19 10:31 | Inpatient (IN) | payer OTHER ==
[2018-05-19 10:40] VITALS: BMI 23.0
[2018-05-19] MEDS ORDERED: Sodium Chloride 0.9% 1,000 ML IV STA (11:08)
[2018-05-19] MEDS ORDERED: Insulin Regular 100 units/ml SC STA (11:09)
[2018-05-19 11:23] LABS: BASO % 0.6 % (0.0-2.0); EOS % 0.4 % (0.0-4.0); HEMOGLOBIN 15.9 g/dL (12.0-16.0); LYMPH # 1.6 K/uL (1.0-4.3); LYMPH % 22.3 % (20.0-40.0); MEAN CELL VOLUME 92.2 fl (81.0-99.0); MEAN CORPUSCULAR HEMOGLOBIN 30.9 pg (27.0-31.0); MEAN CORPUSCULAR HGB CONC 33.5 g/dL (33.0-37.0); MEAN PLATELET VOLUME 9.6 fl (7.2-11.7); MONO # 0.4 K/uL (0.0-0.8); MONO % 5.5 % (0.0-10.0); NEUT # 5.1 K/uL (1.8-7.0); NEUT % 71.2 % (50.0-75.0); NRBC % 0.2 % (0.0-0.0); RBC 5.13 Mil/uL (3.80-5.20); RED CELL DISTRIBUTION WIDTH 13.4 % (11.5-14.5); WHITE BLOOD COUNT 7.1 K/uL (4.8-10.8)
[2018-05-19] MEDS ORDERED: Insulin Regular 100 units/ml ONE (11:23)
--- NOTE | 2018-05-19 11:39 | RAD ---
Date of service: 05/19/2018 PROCEDURE: CHEST RADIOGRAPH, 1 VIEW HISTORY: jeet arzola screeninvg COMPARISON: 11/24/2017. FINDINGS: LUNGS: The lungs are well inflated and clear. PLEURA: No pneumothorax or pleural effusion. CARDIOVASCULAR: The heart is normal in size. No aortic atherosclerotic calcifications present. OSSEOUS STRUCTURES: Within normal limits for the patient's age. VISUALIZED UPPER ABDOMEN: Normal. OTHER FINDINGS: None. IMPRESSION: No active pulmonary disease.
[2018-05-19 11:50] LABS: ALB/GLOB RATIO 1.1 (1.0-2.1); ALBUMIN 4.1 g/dL (3.5-5.0); ALT/SGPT 60 U/L (9-52); AST/SGOT 29 U/L (14-36); BLOOD UREA NITROGEN 11 mg/dl (7-17); GFR NON-AFRICAN AMERICAN > 60
[2018-05-19 12:22] LABS: ABG ALLEN TEST YES; ARTERIAL BLOOD GAS HCO3 23.1 mmol/L (21-28); ARTERIAL BLOOD GAS O2 SAT 96.8 % (95-98); ARTERIAL BLOOD GAS PCO2 32 mm/Hg (35-45); ARTERIAL BLOOD GAS PH 7.43 (7.35-7.45); ARTERIAL BLOOD GAS PO2 67 mm/Hg (80-100); ARTERIAL BLOOD GAS TCO2 22.2 mmol/L (22-28)
[2018-05-19 12:45] LABS: PARTIAL THROMBOPLASTIN TIME 26.9 Seconds (25.6-37.1)
--- NOTE | 2018-05-19 12:50 | ED PDOC ---
Hyperglycemia/Hypoglycemia Time Seen by Provider: 05/19/18 10:36 Chief Complaint (Nursing): High Blood Sugar Chief Complaint (Provider): Hyperglycemia History Per: Patient : The patient does not have any of the infectious symptoms listed except for those marked. Additional Complaint(s): 72 yo female, PMhx/o IDDM, hypothyroidism, depression, anemia, HTN presenting with weakness, palpitations and elevated blood sugar. Pt reports this morning she developed palpitations and she felt "weak," checked her blood sugar and it was over 500. pt Admits that she has not been compliant with her medications because she is "too tired to take them sometimes." No fevers, cough, chills, nausea, vomiting, diarrhea. Patient states she was having sweats but attributed this to fluctuations in blood pressure. PMD: Dr Hernandes Past Medical History Reviewed: Nursing Documentation, Vital Signs Vital Signs: Last Vital Signs Temp 98.0 F 05/19/18 10:49 Pulse 117 H 05/19/18 11:21 Resp BP 154/95 H 05/19/18 10:49 Pulse Ox 98 05/19/18 11:21 - Medical History PMH: Anemia, Depression, Diabetes, Gall Bladder Disease, HTN, Hypothyroidism Denies: Chronic Kidney Disease - Surgical History Surgical History: Appendectomy, Cholecystectomy - Family History Family History: States: Unknown Family Hx - Living Arrangements Living Arrangements: With Family - Social History Current smoker - smoking cessation education provided: No Alcohol: None Drugs: Denies - Home Medications Home Medications: Ambulatory Orders Medication Instructions Recorded Aspirin [Adult Low Dose Aspirin EC] 81 mg PO DAILY 11/25/17 Pantoprazole [Protonix EC Tab] 40 mg PO DAILY 11/26/17 Quetiapine Fumarate [Seroquel] 400 mg PO HS #30 tablet 12/06/17 Atorvastatin [Lipitor] 80 mg PO HS 05/19/18 Divalproex [Depakote DR TAB] 125 mg PO DAILY 05/19/18 Insulin Degludec [Tresiba 20 unit SC HS 05/19/18 Flextouch U-100] Levothyroxine [Synthroid] 75 mcg PO DAILY 05/19/18 Lisinopril [Zestril] 40 mg PO DAILY 05/19/18 Zolpidem [Ambien] 10 mg PO HS 05/19/18 clonazePAM [Klonopin] 0.5 mg PO Q8 PRN 05/19/18 metFORMIN [glucOPHAGE] 500 mg PO BID 05/19/18 - Allergies Allergies/Adverse Reactions: Allergies Allergy/AdvReac Type Severity Reaction Status Date / Time No Known Allergies Allergy Verified 11/24/17 19:16 Review of Systems ROS Statement: Except As Marked, All Systems Reviewed And Found Negative Neurological: Positive for: Weakness Physical Exam - Reviewed Nursing Documentation Reviewed: Yes Vital Signs Reviewed: Yes - Physical Exam Appears: Positive for: Well, Non-toxic, No Acute Distress Head Exam: Positive for: ATRAUMATIC, NORMAL INSPECTION, NORMOCEPHALIC Skin: Positive for: Normal Color, Warm, DRY Eye Exam: Positive for: EOMI, Normal appearance, PERRL ENT: Positive for: Normal ENT Inspection Neck: Positive for: Normal, Painless ROM Cardiovascular/Chest: Positive for: Regular Rate, Rhythm Respiratory: Positive for: CNT, Normal Breath Sounds Gastrointestinal/Abdominal: Positive for: Normal Exam, Soft Back: Positive for: Normal Inspection Extremity: Positive for: Normal ROM Neurologic/Psych: Positive for: Alert, Oriented - Laboratory Results Result Diagrams: 05/19/18 11:15 05/19/18 11:15 - ECG O2 Sat by Pulse Oximetry: 98 Medical Decision Making Medical Decision Making: Pt noted to be tachy in triage, no complaints of chest pain at this time. EKG interpreted and cleared by ED MD, see scanned documents IV access established and diagnostics ordered Glucose 401. IVF running and insulin administered. Repeat FS 268. Case d/w Dr. Farrell, who agreed with admission at this time. Dr. Mckinney, ED attending, aware as well. Disposition - Clinical Impression Clinical Impression: Weakness, Palpitations, Hyperglycemia - Patient ED Disposition Is Patient to be Admitted: Yes - Disposition Disposition Time: 14:57 Condition: STABLE Instructions: Weakness (ED) Forms: [facility] ([place])
[2018-05-19 13:43] LABS: SQUAMOUS EPITHIAL 1 /hpf (0-5); URINE BILIRUBIN NEGATIVE (NEGATIVE); URINE BLOOD NEGATIVE (NEGATIVE); URINE CLARITY CLEAR (Clear); URINE COLOR YELLOW (YELLOW); URINE GLUCOSE (UA) >=500 mg/dL (Normal); URINE LEUKOCYTE ESTERASE NEG Leu/uL (Negative); URINE PROTEIN NEGATIVE (NEGATIVE); URINE UROBILINOGEN 0.2-1.0 mg/dL (0.2-1.0)
[2018-05-19] MEDS ORDERED: Dextrose 50% SYRINGE Inj (50 ml) IV PRN (16:03)
[2018-05-19] MEDS ORDERED: Glucagon Recombinant 1 mg Inj IM PRN (16:03)
--- NOTE | 2018-05-19 16:48 | CP.PCM.HP ---
History of Present Illness - History of Present Illness History of Present Illness: 72 y/o F with a PMHx of IDDM, hypothyroidism, depression, anemia and HTN was sent to ED due to palpitations, generalized weakness and elevated blood sugar levels. Pt reports she stopped all her medication for ~2 months because she got tired of them. Pt visited her PCP this morning where her fasting sugar level was "500." Pt complains that for the last few weeks she has been very thirsty and drinking a lot of water and urinating often. -Pt denies fever, sore throat, dizziness, visual disturbances, chest pain, SOB, abdominal pain, nausea, vomiting, change in bowel movement. PCP: Dr Cecilio VALDERRAMA Present on Admission - Present on Admission Any Indicators Present on Admission: No Review of Systems - Constitutional Constitutional: absent: Chills, Fever - EENT Eyes: absent: Blind Spots, Blurred Vision, Change in Vision Nose/Mouth/Throat: absent: Nasal Congestion, Sinus Pressure, Sore Throat - Cardiovascular Cardiovascular: absent: Chest Pain, Chest Pain at Rest, Dyspnea - Respiratory Respiratory: absent: Cough, Dyspnea, Hemoptysis, Stridor - Gastrointestinal Gastrointestinal: absent: Bloating, Diarrhea, Nausea, Vomiting - Genitourinary Genitourinary: Urinary Frequency. absent: Dysuria, Hematuria - Neurological Neurological: absent: Dizziness, Sensory Deficit Past Patient History - Past Medical History & Family History Past Medical History?: Yes - Past Social History Alcohol: None Drugs: Denies Home Situation {Lives}: Alone - CARDIAC Hx Cardiac Disorders: Yes - PULMONARY Hx Respiratory Disorders: No - NEUROLOGICAL Hx Syncope: Yes - HEENT Hx HEENT Problems: No - RENAL Hx Chronic Kidney Disease: No - ENDOCRINE/METABOLIC Hx Endocrine Disorders: Yes - HEMATOLOGICAL/ONCOLOGICAL Hx Anemia: Yes - INTEGUMENTARY Hx Dermatological Problems: No - MUSCULOSKELETAL/RHEUMATOLOGICAL Hx Falls: No - GASTROINTESTINAL Hx Gall Bladder Disease: Yes - GENITOURINARY/GYNECOLOGICAL Hx Genitourinary Disorders: No - PSYCHIATRIC Hx Psychophysiologic Disorder: Yes - SURGICAL HISTORY Hx Appendectomy: Yes Hx Cholecystectomy: Yes - ANESTHESIA Hx Anesthesia: Yes Hx Anesthesia Reactions: No Hx Malignant Hyperthermia: No Meds Allergies/Adverse Reactions: Allergies Allergy/AdvReac Type Severity Reaction Status Date / Time No Known Allergies Allergy Verified 11/24/17 19:16 Physical Exam - Constitutional Appears: No Acute Distress - Head Exam Head Exam: ATRAUMATIC, NORMAL INSPECTION - Eye Exam Eye Exam: EOMI, Normal appearance - ENT Exam ENT Exam: Mucous Membranes Dry - Neck Exam Neck exam: Positive for: Full Rom. Negative for: Meningismus, Thyromegaly - Respiratory Exam Respiratory Exam: NORMAL BREATHING PATTERN. absent: Rales, Rhonchi, Wheezes - Cardiovascular Exam Cardiovascular Exam: Tachycardia, +S1, +S2 - GI/Abdominal Exam GI & Abdominal Exam: Normal Bowel Sounds, Soft. absent: Distended, Guarding, Rebound, Rigid, Tenderness - Extremities Exam Extremities exam: Positive for: pedal edema. Negative for: calf tenderness - Back Exam Back exam: absent: CVA tenderness (L), CVA tenderness (R) - Neurological Exam Neurological exam: Alert, Oriented x3 Results - Vital Signs Recent Vital Signs: Last Vital Signs Temp 97.6 F 05/19/18 15:33 Pulse 105 H 05/19/18 15:33 Resp 18 05/19/18 15:33 BP 158/76 H 05/19/18 15:33 Pulse Ox 96 05/19/18 15:27 - Labs Result Diagrams: 05/19/18 11:15 05/19/18 11:15 Labs: Laboratory Results - last 24 hr 05/19/18 05/19/18 05/19/18 10:44 11:15 11:15 WBC 7.1 RBC 5.13 Hgb 15.9 D Hct 47.3 H MCV 92.2 MCH 30.9 MCHC 33.5 RDW 13.4 Plt Count 223 MPV 9.6 Neut % (Auto) 71.2 Lymph % (Auto) 22.3 [place] % (Auto) 5.5 Eos % (Auto) 0.4 Baso % (Auto) 0.6 Neut # (Auto) 5.1 Lymph # (Auto) 1.6 [place] # (Auto) 0.4 Eos # (Auto) 0.0 Baso # (Auto) 0.0 PT INR APTT pCO2 pO2 HCO3 ABG pH ABG Total CO2 ABG O2 Saturation ABG Base Excess Balaji Test ABG Potassium A-a O2 Difference Glucose Lactate FiO2 Sodium 139 Potassium 4.3 Chloride 100 Carbon Dioxide 21 L Anion Gap 22 H BUN 11 Creatinine 0.5 L Est GFR ( Amer) > 60 Est GFR (Non-Af Amer) > 60 POC Glucose (mg/dL) 369 H Random Glucose 401 H* D Calcium 9.0 Magnesium 1.7 Total Bilirubin 0.6 AST 29 ALT 60 H D Alkaline Phosphatase 281 H D Troponin I < 0.0120 Total Protein 7.8 Albumin 4.1 Globulin 3.7 Albumin/Globulin Ratio 1.1 Arterial Blood Potassium Urine Color Urine Clarity Urine pH Ur Specific [place] Urine Protein Urine Glucose (UA) Urine Ketones Urine Blood Urine Nitrate Urine Bilirubin Urine Urobilinogen Ur Leukocyte Esterase Urine RBC (Auto) Urine Microscopic WBC Ur Squamous Epith Cells Hyaline Casts 05/19/18 05/19/18 05/19/18 11:15 12:00 13:30 WBC RBC Hgb Hct MCV MCH MCHC RDW Plt Count MPV Neut % (Auto) Lymph % (Auto) [place] % (Auto) Eos % (Auto) Baso % (Auto) Neut # (Auto) Lymph # (Auto) [place] # (Auto) Eos # (Auto) Baso # (Auto) PT 11.0 INR 1.0 APTT 26.9 pCO2 32 L pO2 67 L HCO3 23.1 ABG pH 7.43 ABG Total CO2 22.2 ABG O2 Saturation 96.8 ABG Base Excess -2.1 L Balaji Test Yes ABG Potassium 3.7 A-a O2 Difference 43.0 Glucose 361 H Lactate 0.9 FiO2 21.0 Sodium 137.0 Potassium Chloride 101.0 Carbon Dioxide Anion Gap BUN Creatinine Est GFR ( Amer) Est GFR (Non-Af Amer) POC Glucose (mg/dL) Random Glucose Calcium Magnesium Total Bilirubin AST ALT Alkaline Phosphatase Troponin I Total Protein Albumin Globulin Albumin/Globulin Ratio Arterial Blood Potassium 3.7 Urine Color Yellow Urine Clarity Clear Urine pH 5.0 Ur Specific [place] 1.041 H Urine Protein Negative Urine Glucose (UA) >=500 Urine Ketones 80 Urine Blood Negative Urine Nitrate Negative Urine Bilirubin Negative Urine Urobilinogen 0.2-1.0 Ur Leukocyte Esterase Neg Urine RBC (Auto) 1 Urine Microscopic WBC 4 Ur Squamous Epith Cells 1 Hyaline Casts 3-5 H 05/19/18 14:01 WBC RBC Hgb Hct MCV MCH MCHC RDW Plt Count MPV Neut % (Auto) Lymph % (Auto) [place] % (Auto) Eos % (Auto) Baso % (Auto) Neut # (Auto) Lymph # (Auto) [place] # (Auto) Eos # (Auto) Baso # (Auto) PT INR APTT pCO2 pO2 HCO3 ABG pH ABG Total CO2 ABG O2 Saturation ABG Base Excess [place] Test ABG Potassium A-a O2 Difference Glucose Lactate FiO2 Sodium Potassium Chloride Carbon Dioxide Anion Gap BUN Creatinine Est GFR ( Amer) Est GFR (Non-Af Amer) POC Glucose (mg/dL) 238 H Random Glucose Calcium Magnesium Total Bilirubin AST ALT Alkaline Phosphatase Troponin I Total Protein Albumin Globulin Albumin/Globulin Ratio Arterial Blood Potassium Urine Color Urine Clarity Urine pH Ur Specific [place] Urine Protein Urine Glucose (UA) Urine Ketones Urine Blood Urine Nitrate Urine Bilirubin Urine Urobilinogen Ur Leukocyte Esterase Urine RBC (Auto) Urine Microscopic WBC Ur Squamous Epith Cells Hyaline Casts Assessment & Plan - Assessment and Plan (Free Text) Assessment: 73 y/o F with a PMHx of IDDM, HTN and HLD, non-adherent to medications, is admitted for evaluation of hyperglycemia and uncontrolled diabetes mellitus. -IV Insulin 10 units administered at ED. -Last HbA1c 9.9 on 10/20/17. PLAN: --Will resume home medications. --Serum glucose level ACHS --Insulin Sliding scale --BMP, lipid panel, hemoglobin A1c. --Diabetic diet. --Plan as ordered. Case discussed with Dr Farrell, FM attending transformation consultant. - Date & Time Date: 05/19/18 Time: 16:00
[2018-05-19] MEDS: Insulin Lispro (humaLOG) 100 Units/ml Inj SC SCH ×2 (18:14→22:49)
--- NOTE | 2018-05-19 18:31 | CARD ---
APPROVED REPORT Date of service: 05/19/2018 EKG Measurement Heart [id number] <Conclusion> Sinus tachycardia Left atrial enlargement Prolonged QT interval Abnormal ECG
[2018-05-19] MEDS ORDERED: INSULIN DEGLUDEC 20 UNIT SC SCH (22:00)
[2018-05-19] MEDS ORDERED: QUETIAPINE FUMARATE 400 MG PO SCH (22:00)
[2018-05-20] MEDS: Levothyroxine 75 MCG TAB PO SCH (05:30)
[2018-05-20 05:57] LABS: BLOOD UREA NITROGEN 14 mg/dl (7-17); CALCIUM 9.2 mg/dL (8.4-10.2); GFR NON-AFRICAN AMERICAN > 60; HDL CHOLESTEROL 53 MG/DL (30-70)
[2018-05-20 06:08] LABS: LDL CHOLESTEROL 192 mg/dL (0-129)
[2018-05-20] MEDS: Insulin Lispro (humaLOG) 100 Units/ml Inj SC SCH ×4 (06:59→22:43)
[2018-05-20] MEDS: Divalproex 125 mg DR (BID formulation) PO SCH (09:32)
[2018-05-20] MEDS: Enoxaparin 40 mg Syringe SC SCH (09:34)
[2018-05-20] MEDS: Pantoprazole 40 mg EC Tab PO SCH (09:35)
--- NOTE | 2018-05-20 16:20 | CP.PCM.PN ---
Subjective - Date & Time of Evaluation Date of Evaluation: 05/20/18 Time of Evaluation: 10:10 - Subjective Subjective: 73 y/o f was seen and examined by bedside with Dr Farrell. Pt reported feeling a little weak but OK. Pt has remained afebrile with NO acute events overnight. Pt is tolerating PO. Objective - Vital Signs/Intake and Output Vital Signs (last 24 hours): Temp Pulse Resp BP Pulse Ox 98.1 F 85 20 108/70 94 L 05/20/18 15:40 05/20/18 15:40 05/20/18 15:40 05/20/18 15:40 05/20/18 15:40 - Medications Medications: Current Medications Aspirin (Ecotrin) 81 mg PO DAILY [facility] Last Admin: 05/20/18 09:32 Dose: 81 mg Atorvastatin Calcium (Lipitor) 80 mg PO HS [facility] Last Admin: 05/20/18 09:34 Dose: 80 mg Clonazepam (Klonopin) 0.5 mg PO HS PRN PRN Reason: Anxiety Dextrose (Glutose 15) 0 gm PO ONCE PRN; Protocol PRN Reason: Hypoglycemia Protocol Dextrose (Dextrose 50% Inj) 0 ml IV STAT PRN; Protocol PRN Reason: Hypoglycemia Protocol Divalproex Sodium (Depakote Dr(*Bid*)) 125 mg PO DAILY [facility] Last Admin: 05/20/18 09:32 Dose: 125 mg Enoxaparin Sodium (Lovenox) 40 mg SC DAILY [facility]; Protocol Last Admin: 05/20/18 09:34 Dose: 40 mg Glucagon (Glucagen Diagnostic Kit) 0 mg IM STAT PRN; Protocol PRN Reason: Hypoglycemia Protocol Home Med (Insulin Degludec [Tresiba Flextouch U-100]) 30 unit SC HS [facility] Insulin Human Lispro (Humalog) 8 units SC AC JAMES Insulin Human Lispro (Humalog) 0 units SC ACHS [facility]; Protocol Levothyroxine Sodium (Synthroid) 75 mcg PO DAILY@0630 [facility] Last Admin: 05/20/18 05:30 Dose: 75 mcg Lisinopril (Zestril) 40 mg PO DAILY [facility] Last Admin: 05/20/18 09:35 Dose: 40 mg Pantoprazole Sodium (Protonix Ec Tab) 40 mg PO DAILY [facility] Last Admin: 05/20/18 09:35 Dose: 40 mg Quetiapine Fumarate (Seroquel) 400 mg PO HS [facility] Last Admin: 05/19/18 22:48 Dose: 400 mg Zolpidem Tartrate (Ambien) 10 mg PO [facility] Last Admin: 05/19/18 22:26 Dose: 10 mg - Labs Labs: 05/19/18 11:15 05/20/18 04:50 PT 11.0 Seconds (9.8-13.1) 05/19/18 11:15 INR 1.0 05/19/18 11:15 APTT 26.9 Seconds (25.6-37.1) 05/19/18 11:15 - Additional Findings Additional findings: - Constitutional Appears: No Acute Distress - Head Exam Head Exam: ATRAUMATIC, NORMAL INSPECTION - Eye Exam Eye Exam: EOMI, Normal appearance - ENT Exam ENT Exam: Mucous Membranes Dry - Neck Exam Neck exam: Positive for: Full Rom. Negative for: Meningismus, Thyromegaly - Respiratory Exam Respiratory Exam: NORMAL BREATHING PATTERN. absent: Rales, Rhonchi, Wheezes - Cardiovascular Exam Cardiovascular Exam: Tachycardia, +S1, +S2 - GI/Abdominal Exam GI & Abdominal Exam: Normal Bowel Sounds, Soft. absent: Distended, Guarding, Rebound, Rigid, Tenderness - Extremities Exam Extremities exam: Positive for: pedal edema. Negative for: calf tenderness - Back Exam Back exam: absent: CVA tenderness (L), CVA tenderness (R) - Neurological Exam Neurological exam: Alert, Oriented x3 Assessment and Plan - Assessment and Plan (Free Text) Assessment: 73 y/o F with a PMHx of IDDM, HTN and HLD, non-adherent to medications, is admitted for evaluation of hyperglycemia and uncontrolled diabetes mellitus. -Last HbA1c 9.9 on 10/20/17. -Today: HbA1c 12.9 - elevated. PLAN: --Endocrinology consult, Dr Ricardo. F/U recommendations --Physical therapy, consult. --Pt was extensively counseled on the need for proper adherence to medications. --Diabetic diet. --Plan as ordered. Case discussed with Dr Farrell. [place], PGY-2
[2018-05-20] MEDS ORDERED: Insulin Lispro (humaLOG) 100 Units/ml Inj SC SCH (16:30)
[2018-05-20] MEDS ORDERED: INSULIN DEGLUDEC 30 UNIT SC SCH (22:00)
--- NOTE | 2018-05-20 22:32 | CON ---
DATE: 05/20/2018 LOCATION: Room 418. HISTORY OF PRESENT ILLNESS: This is a 73-year-old female with a known history of type 2 insulin-requiring diabetes, presenting here with marked hyperglycemic accelerations related to drug omission over the last 2-3 months prior to admission and is now being referred for diabetic evaluation and management. PAST MEDICAL HISTORY: As mentioned above, history of type 2 insulin-requiring diabetes, on a combination of metformin taken as 500 mg b.i.d. and Tresiba taken as 20 units at bedtime; history of hypertension and dyslipidemia; history of generalized anxiety and depression, currently on psychotropic medications, taking Klonopin, Ambien and Seroquel medications; history of hypothyroidism, currently on levothyroxine taken as 75 mcg daily. FAMILY HISTORY: Positive for diabetes and hypertension. SOCIAL HISTORY: The patient has a supportive family. No known substance use. REVIEW OF SYSTEMS: Admits to generalized body weakness with episodic bouts of dizziness and lightheadedness, worse in the last 2-3 days prior to admission. Also admits to visual blurring and bifrontal headaches with easy fatigability and tiredness. No chest pains, palpitations or PND. Her oral intake has been variable with nausea, dyspepsia and vague upper abdominal pain. Also admits to marked polyuria, nocturia and polydipsia as noted. LABORATORY DATA: The chemistries initially showed a hemoglobin A1c of 12.9% and the initial chemistry showed a BUN of 11, sodium 139, potassium 4.3, chloride 100, CO2 of 21, glucose 401 and creatinine 0.5. Her glucose levels have ranged from 293 to 305 mg/dL. The glucose level today was actually 389 done fasting as noted. ASSESSMENT: This is a 73-year-old female with uncontrolled and decompensated type 2 insulin-requiring diabetes, presenting here with marked hyperglycemic accelerations, related to drug omission with underlying worsening generalized anxiety and depression as noted thereof. PLAN OF MANAGEMENT: As discussed with the patient lengthily at bedside, the imperative need for a more optimal metabolic control, especially with the very elevated A1c level is indicative of very poor outpatient metabolic control of her diabetic condition was discussed at bedside and the imperative need to restart her now on a more physiologic basal and bolus insulin drug combination as ordered. We will start her with Humalog given as 8 units subcu t.i.d. before meals to start today as ordered. We will modify the coverage scale to obviate hypoglycemia and detailed orders have been given. We will increase the Tresiba to 30 units subcu at bedtime daily to start tonight. We will also obtain repeat thyroid studies and adjust her dose regimen as indicated. We will initiate diabetic education and dietary instructions also at the time of this admission. We will discontinue all the three hypoglycemic therapy, where she actually is very resistant at this time, especially with marked glucotoxicity. As her glycemic profile improves on the insulin therapy on the outpatient, then she can be restarted on a combination of oral hypoglycemic therapy as indicated. At this time, we are keeping her on the basal and bolus insulin regimen to reduce the glucotoxicity and improve her clinical and metabolic symptoms accordingly. We will also continue the IV hydration as given. We will follow and advise accordingly. Chasity Ricardo MD
[2018-05-20] MEDS: Insulin Detemir 100 Units/ml Inj SC SCH (22:55)
[2018-05-21] MEDS: Levothyroxine 75 MCG TAB PO SCH (05:47)
[2018-05-21] MEDS: Insulin Lispro (humaLOG) 100 Units/ml Inj SC SCH ×7 (06:36→21:38)
[2018-05-21 07:32] LABS: ALBUMIN 2.8 g/dL (3.5-5.0); ALT/SGPT 30 U/L (9-52); AST/SGOT 14 U/L (14-36); BLOOD UREA NITROGEN 17 mg/dl (7-17); CALCIUM 8.7 mg/dL (8.4-10.2); GFR NON-AFRICAN AMERICAN > 60
[2018-05-21] MEDS: Enoxaparin 40 mg Syringe SC SCH (08:35)
[2018-05-21] MEDS: Pantoprazole 40 mg EC Tab PO SCH (08:37)
[2018-05-21] MEDS: Divalproex 125 mg DR (BID formulation) PO SCH (08:37)
--- NOTE | 2018-05-21 13:25 | PN ---
DATE: 05/21/2018 ENDO FOLLOWUP NOTE LOCATION: Room 407. SUBJECTIVE: This is a 73-year-old female with recent uncontrolled type 2 insulin-requiring diabetes, presenting here with marked hyperglycemic accelerations and is now being followed closely for metabolic management. Her glycemic levels are fluctuating as noted overnight with glucose levels over 200 mg/dL as noted. Her A1c is pending at this time. ASSESSMENT AND PLAN: So, to allow for dose equilibration, we will continue a modified basal and bolus insulin regimen as given overnight with Levemir given as 24 units subcutaneous at bedtime daily as given. We will continue the Humalog modified to a higher dose of Humalog 10 units t.i.d. before meals, to start at breakfast time this morning. We will continue the modified low-dose correction scale to obviate hypoglycemia and detailed orders have been given. We will obtain serial chemistries and supplement accordingly as needed. We will follow. Chasity Ricardo MD
--- NOTE | 2018-05-21 18:45 | CP.PCM.PN ---
Subjective - Date & Time of Evaluation Date of Evaluation: 05/21/18 Time of Evaluation: 10:00 - Subjective Subjective: patient seen and examined at bedside. no acute events overnight. no other complaints reported. has not done PT yet. sugars continue to be elevated. Objective - Vital Signs/Intake and Output Vital Signs (last 24 hours): Temp Pulse Resp BP Pulse Ox 98.2 F 66 16 119/79 95 05/21/18 16:14 05/21/18 16:14 05/21/18 16:14 05/21/18 16:14 05/21/18 16:14 Intake and Output: 05/21/18 05/21/18 06:59 18:59 Intake Total 1850 Balance 1850 - Medications Medications: Current Medications Aspirin (Ecotrin) 81 mg PO DAILY [facility] Last Admin: 05/21/18 08:37 Dose: 81 mg Atorvastatin Calcium (Lipitor) 80 mg PO HS [facility] Last Admin: 05/20/18 22:37 Dose: Not Given Clonazepam (Klonopin) 0.5 mg PO HS PRN PRN Reason: Anxiety Dextrose (Glutose 15) 0 gm PO ONCE PRN; Protocol PRN Reason: Hypoglycemia Protocol Dextrose (Dextrose 50% Inj) 0 ml IV STAT PRN; Protocol PRN Reason: Hypoglycemia Protocol Divalproex Sodium (Depakote Dr(*Bid*)) 125 mg PO DAILY [facility] Last Admin: 05/21/18 08:37 Dose: 125 mg Enoxaparin Sodium (Lovenox) 40 mg SC DAILY [facility]; Protocol Last Admin: 05/21/18 08:35 Dose: 40 mg Glucagon (Glucagen Diagnostic Kit) 0 mg IM STAT PRN; Protocol PRN Reason: Hypoglycemia Protocol Home Med (Insulin Degludec [Tresiba Flextouch U-100]) 30 unit SC HS [facility] Insulin Detemir (Levemir) 24 units SC HS [facility] Last Admin: 05/20/18 22:55 Dose: 24 u Insulin Human Lispro (Humalog) 0 units SC ACHS [facility]; Protocol Last Admin: 05/21/18 16:39 Dose: Not Given Insulin Human Lispro (Humalog) 10 units SC AC [facility] Last Admin: 05/21/18 16:41 Dose: 10 units Levothyroxine Sodium (Synthroid) 75 mcg PO DAILY@0630 [facility] Last Admin: 05/21/18 05:47 Dose: 75 mcg Lisinopril (Zestril) 40 mg PO DAILY [facility] Last Admin: 05/21/18 08:36 Dose: 40 mg Pantoprazole Sodium (Protonix Ec Tab) 40 mg PO DAILY [facility] Last Admin: 05/21/18 08:37 Dose: 40 mg Quetiapine Fumarate (Seroquel) 400 mg PO HS [facility] Last Admin: 05/20/18 22:35 Dose: 400 mg Zolpidem Tartrate (Ambien) 10 mg PO HS [facility] Last Admin: 05/20/18 22:48 Dose: 10 mg - Labs Labs: 05/19/18 11:15 05/21/18 05:45 PT 11.0 Seconds (9.8-13.1) 05/19/18 11:15 INR 1.0 05/19/18 11:15 APTT 26.9 Seconds (25.6-37.1) 05/19/18 11:15 - Constitutional Appears: Non-toxic - Head Exam Head Exam: NORMAL INSPECTION - Eye Exam Eye Exam: Normal appearance - Neck Exam Neck Exam: Normal Inspection - Respiratory Exam Respiratory Exam: Clear to Ausculation Bilateral - Cardiovascular Exam Cardiovascular Exam: +S1, +S2 - GI/Abdominal Exam GI & Abdominal Exam: Soft - Neurological Exam Neurological Exam: Alert, Awake - Psychiatric Exam Psychiatric exam: Normal Affect, Normal Mood - Skin Skin Exam: Normal Color, Warm Assessment and Plan - Assessment and Plan (Free Text) Assessment: 73 y/o F with a PMHx of IDDM, HTN and HLD, non-adherent to medications, is admitted for evaluation of hyperglycemia and uncontrolled diabetes mellitus. PLAN: --Last HbA1c 9.9 on 10/20/17. --now HbA1c 12.9 - elevated. --Endocrinology consult, Dr Ricardo. F/U recommendations --Physical therapy, consulted --Diabetic diet. --Plan as ordered.
[2018-05-21] MEDS: Insulin Detemir 100 Units/ml Inj SC SCH (21:39)
[2018-05-22] MEDS: Insulin Lispro (humaLOG) 100 Units/ml Inj SC SCH ×7 (06:30→22:00)
[2018-05-22] MEDS: Divalproex 125 mg DR (BID formulation) PO SCH (08:26)
[2018-05-22] MEDS: Levothyroxine 75 MCG TAB PO SCH (08:26)
[2018-05-22] MEDS: Pantoprazole 40 mg EC Tab PO SCH (08:26)
[2018-05-22] MEDS: Enoxaparin 40 mg Syringe SC SCH (08:27)
[2018-05-22 08:48] LABS: ALB/GLOB RATIO 1.1 (1.0-2.1); ALBUMIN 3.6 g/dL (3.5-5.0); ALT/SGPT 33 U/L (9-52); AST/SGOT 23 U/L (14-36); BLOOD UREA NITROGEN 14 mg/dl (7-17); CALCIUM 8.9 mg/dL (8.4-10.2); GFR NON-AFRICAN AMERICAN > 60
[2018-05-22] MEDS ORDERED: Potassium Chloride 20 mEq ER Tab PO ONE (11:08)
[2018-05-22] MEDS: Megestrol Acetate 40 mg/ml Cup PO SCH (16:27)
[2018-05-22 18:30] LABS: GAMMA GLUTAMYL TRANSPEPTIDASE 134 U/L (8-78)
--- NOTE | 2018-05-22 18:42 | CP.PCM.PN ---
Subjective - Date & Time of Evaluation Date of Evaluation: 05/22/18 Time of Evaluation: 11:00 - Subjective Subjective: patient seen and examined at bedside. no acute events overnight. no other complaints reported. sugars continue to be elevated. endocrine following. Objective - Vital Signs/Intake and Output Vital Signs (last 24 hours): Temp Pulse Resp BP Pulse Ox 98.2 F 73 16 154/88 H 95 05/22/18 16:34 05/22/18 16:34 05/22/18 16:34 05/22/18 16:34 05/22/18 16:34 - Medications Medications: Current Medications Aspirin (Ecotrin) 81 mg PO DAILY [facility] Last Admin: 05/22/18 08:26 Dose: 81 mg Atorvastatin Calcium (Lipitor) 80 mg PO HS [facility] Last Admin: 05/21/18 21:35 Dose: 80 mg Clonazepam (Klonopin) 0.5 mg PO HS PRN PRN Reason: Anxiety Dextrose (Glutose 15) 0 gm PO ONCE PRN; Protocol PRN Reason: Hypoglycemia Protocol Dextrose (Dextrose 50% Inj) 0 ml IV STAT PRN; Protocol PRN Reason: Hypoglycemia Protocol Divalproex Sodium (Depakote Dr(*Bid*)) 125 mg PO DAILY [facility] Last Admin: 05/22/18 08:26 Dose: 125 mg Enoxaparin Sodium (Lovenox) 40 mg SC DAILY [facility]; Protocol Last Admin: 05/22/18 08:27 Dose: 40 mg Glucagon (Glucagen Diagnostic Kit) 0 mg IM STAT PRN; Protocol PRN Reason: Hypoglycemia Protocol Home Med (Insulin Degludec [Tresiba Flextouch U-100]) 30 unit SC [facility] Insulin Detemir (Levemir) 24 units SC HS [facility] Last Admin: 05/21/18 21:39 Dose: 24 u Insulin Human Lispro (Humalog) 0 units SC ACHS [facility]; Protocol Last Admin: 05/22/18 16:36 Dose: Not Given Insulin Human Lispro (Humalog) 10 units SC AC [facility] Last Admin: 05/22/18 16:35 Dose: 10 units Levothyroxine Sodium (Synthroid) 75 mcg PO DAILY@0630 [facility] Last Admin: 05/22/18 08:26 Dose: 75 mcg Lisinopril (Zestril) 40 mg PO DAILY [facility] Last Admin: 05/22/18 08:26 Dose: 40 mg Megestrol Acetate (Megace) 400 mg PO DAILY [facility] Last Admin: 05/22/18 16:27 Dose: 400 mg Pantoprazole Sodium (Protonix Ec Tab) 40 mg PO DAILY [facility] Last Admin: 05/22/18 08:26 Dose: 40 mg Quetiapine Fumarate (Seroquel) 400 mg PO HS [facility] Last Admin: 05/21/18 21:36 Dose: 400 mg Zolpidem Tartrate (Ambien) 10 mg PO HS [facility] Last Admin: 05/21/18 21:32 Dose: 10 mg - Labs Labs: 05/19/18 11:15 05/22/18 06:00 PT 11.0 Seconds (9.8-13.1) 05/19/18 11:15 INR 1.0 05/19/18 11:15 APTT 26.9 Seconds (25.6-37.1) 05/19/18 11:15 - Additional Findings Additional findings: - Constitutional Appears: Non-toxic - Head Exam Head Exam: NORMAL INSPECTION - Eye Exam Eye Exam: Normal appearance - Neck Exam Neck Exam: Normal Inspection - Respiratory Exam Respiratory Exam: Clear to Ausculation Bilateral - Cardiovascular Exam Cardiovascular Exam: +S1, +S2 - GI/Abdominal Exam GI & Abdominal Exam: Soft - Neurological Exam Neurological Exam: Alert, Awake - Psychiatric Exam Psychiatric exam: Normal Affect, Normal Mood - Skin Skin Exam: Normal Color, Warm Assessment and Plan - Assessment and Plan (Free Text) Assessment: 73 y/o F with a PMHx of IDDM, HTN and HLD, non-adherent to medications, is admitted for evaluation of hyperglycemia and uncontrolled diabetes mellitus. PLAN: --Last HbA1c 9.9 on 10/20/17. --now HbA1c 12.9 - elevated. --Endocrinology consult, Dr Ricardo. F/U recommendations --Physical therapy, consulted --Diabetic diet. --Plan as ordered.
[2018-05-22] MEDS: Insulin Detemir 100 Units/ml Inj SC SCH (21:29)
[2018-05-23 00:40] VITALS: RESP 18
[2018-05-23 06:00] LABS: BASO % 0.7 % (0.0-2.0); EOS # 0.1 K/uL (0.0-0.7); EOS % 1.7 % (0.0-4.0); HEMOGLOBIN 13.6 g/dL (12.0-16.0); LYMPH # 3.1 K/uL (1.0-4.3); LYMPH % 51.9 % (20.0-40.0); MEAN CORPUSCULAR HEMOGLOBIN 30.4 pg (27.0-31.0); MEAN CORPUSCULAR HGB CONC 32.7 g/dL (33.0-37.0); MEAN PLATELET VOLUME 10.1 fl (7.2-11.7); MONO # 0.4 K/uL (0.0-0.8); MONO % 6.2 % (0.0-10.0); NEUT # 2.4 K/uL (1.8-7.0); NEUT % 39.5 % (50.0-75.0); NRBC % 0.1 % (0.0-0.0); RBC 4.46 Mil/uL (3.80-5.20); RED CELL DISTRIBUTION WIDTH 13.6 % (11.5-14.5)
[2018-05-23 06:35] LABS: ALBUMIN 3.4 g/dL (3.5-5.0); ALT/SGPT 23 U/L (9-52); AST/SGOT 28 U/L (14-36); BLOOD UREA NITROGEN 11 mg/dl (7-17); CALCIUM 8.9 mg/dL (8.4-10.2); GFR NON-AFRICAN AMERICAN > 60
[2018-05-23] MEDS: Insulin Lispro (humaLOG) 100 Units/ml Inj SC SCH ×4 (06:37→13:20)
[2018-05-23] MEDS: Levothyroxine 75 MCG TAB PO SCH (08:31)
[2018-05-23] MEDS: Divalproex 125 mg DR (BID formulation) PO SCH (08:33)
[2018-05-23] MEDS: Enoxaparin 40 mg Syringe SC SCH (08:33)
--- NOTE | 2018-05-23 08:33 | PN ---
DATE: 05/22/2018 ENDOCRINOLOGY FOLLOWUP NOTE LOCATION: In room 407. SUBJECTIVE: This is a 73-year-old female with recent uncontrolled type 2 insulin-requiring diabetes with extremes of glycemic fluctuations and is now being followed closely for metabolic management. Her glycemic levels are fluctuating as noted overnight with glucose levels ranging from 184 to 322 at bedtime last night. LABORATORY DATA: Her chemistry showed a BUN of 14, sodium 142, potassium 3.4, chloride 105, CO2 of 29, glucose 190, and creatinine 0.4. ASSESSMENT AND PLAN: So at this time to allow for dose equilibration, we will continue the same basal and bolus insulin regimen as ordered modified to start today. We will continue the Humalog given as 10 units subcutaneously t.i.d. before meals to start today as ordered. We will continue also the basal insulin given at a higher dose of 24 units subcutaneously at bedtime daily to start tonight. We will continue also the levothyroxine as she remains clinically and biochemically euthyroid as noted with the same dose of 75 mcg once daily as given. We will obtain serial chemistries and supplement accordingly as needed. We will follow. Chasity Ricardo MD
[2018-05-23] MEDS: Pantoprazole 40 mg EC Tab PO SCH (08:34)
[2018-05-23] MEDS: Megestrol Acetate 40 mg/ml Cup PO SCH (08:34)
[2018-05-23 11:58] VITALS: BP 131/83; PULSE 81; TEMP 98; O2SAT 96
--- NOTE | 2018-05-23 15:01 | CP.PCM.DIS ---
Provider - Provider Date of Admission: 05/21/18 17:06 Attending physician: Jose Farrell MD Time Spent in preparation of Discharge (in minutes): 30 Diagnosis - Discharge Diagnosis (1) Hyperglycemia Status: Resolved Hospital Course - Lab Results Lab Results: Most Recent Lab Values WBC 6.0 K/uL (4.8-10.8) 05/23/18 04:20 RBC 4.46 Mil/uL (3.80-5.20) 05/23/18 04:20 Hgb 13.6 g/dL (12.0-16.0) D 05/23/18 04:20 Hct 41.5 % (34.0-47.0) 05/23/18 04:20 MCV 93.0 fl (81.0-99.0) 05/23/18 04:20 MCH 30.4 pg (27.0-31.0) 05/23/18 04:20 MCHC 32.7 g/dL (33.0-37.0) L 05/23/18 04:20 RDW 13.6 % (11.5-14.5) 05/23/18 04:20 Plt Count 236 K/uL (130-400) 05/23/18 04:20 MPV 10.1 fl (7.2-11.7) 05/23/18 04:20 Neut % (Auto) 39.5 % (50.0-75.0) L 05/23/18 04:20 Lymph % (Auto) 51.9 % (20.0-40.0) H 05/23/18 04:20 [place] % (Auto) 6.2 % (0.0-10.0) 05/23/18 04:20 Eos % (Auto) 1.7 % (0.0-4.0) 05/23/18 04:20 Baso % (Auto) 0.7 % (0.0-2.0) 05/23/18 04:20 Neut # (Auto) 2.4 K/uL (1.8-7.0) 05/23/18 04:20 Lymph # (Auto) 3.1 K/uL (1.0-4.3) 05/23/18 04:20 [place] # (Auto) 0.4 K/uL (0.0-0.8) 05/23/18 04:20 Eos # (Auto) 0.1 K/uL (0.0-0.7) 05/23/18 04:20 Baso # (Auto) 0.0 K/uL (0.0-0.2) 05/23/18 04:20 PT 11.0 Seconds (9.8-13.1) 05/19/18 11:15 INR 1.0 05/19/18 11:15 APTT 26.9 Seconds (25.6-37.1) 05/19/18 11:15 pCO2 32 mm/Hg (35-45) L 05/19/18 12:00 pO2 67 mm/Hg (80-100) L 05/19/18 12:00 HCO3 23.1 mmol/L (21-28) 05/19/18 12:00 ABG pH 7.43 (7.35-7.45) 05/19/18 12:00 ABG Total CO2 22.2 mmol/L (22-28) 05/19/18 12:00 ABG O2 Saturation 96.8 % (95-98) 05/19/18 12:00 ABG Base Excess -2.1 mmol/L (-2.0-3.0) L 05/19/18 12:00 [place] Test Yes 05/19/18 12:00 ABG Potassium 3.7 mmol/L (3.6-5.2) 05/19/18 12:00 A-a O2 Difference 43.0 mm/Hg 05/19/18 12:00 Sodium 137.0 mmol/L (132-148) 05/19/18 12:00 Chloride 101.0 mmol/L (98-107) 05/19/18 12:00 Glucose 361 mg/dL (65-105) H 05/19/18 12:00 Lactate 0.9 mmol/L (0.7-2.1) 05/19/18 12:00 FiO2 21.0 % 05/19/18 12:00 Sodium 139 mmol/l (132-148) 05/23/18 04:20 Potassium 4.1 MMOL/L (3.6-5.0) 05/23/18 04:20 Chloride 106 mmol/L (98-107) 05/23/18 04:20 Carbon Dioxide 25 mmol/L (22-30) 05/23/18 04:20 Anion Gap 12 (10-20) 05/23/18 04:20 BUN 11 mg/dl (7-17) 05/23/18 04:20 Creatinine 0.3 mg/dl (0.7-1.2) L 05/23/18 04:20 Est GFR ( Amer) > 60 05/23/18 04:20 Est GFR (Non-Af Amer) > 60 05/23/18 04:20 POC Glucose (mg/dL) 194 mg/dL (65-110) H 05/23/18 11:14 Random Glucose 269 mg/dL (65-105) H 05/23/18 04:20 Hemoglobin A1c 12.9 % (4.2-6.5) H D 05/20/18 04:50 Calcium 8.9 mg/dL (8.4-10.2) 05/23/18 04:20 Phosphorus 3.7 mg/dl (2.5-4.5) 05/21/18 05:45 Magnesium 1.6 MG/DL (1.6-2.3) 05/23/18 04:20 Total Bilirubin 0.5 mg/dl (0.2-1.3) 05/23/18 04:20 GGT 134 U/L (8-78) H 05/22/18 06:00 AST 28 U/L (14-36) 05/23/18 04:20 ALT 23 U/L (9-52) 05/23/18 04:20 Alkaline Phosphatase 115 U/L (38-126) 05/23/18 04:20 Troponin I < 0.0120 ng/mL (0.00-0.120) 05/19/18 11:15 Total Protein 6.7 G/DL (6.3-8.2) 05/23/18 04:20 Albumin 3.4 g/dL (3.5-5.0) L 05/23/18 04:20 Globulin 3.3 gm/dL (2.2-3.9) 05/23/18 04:20 Albumin/Globulin Ratio 1.0 (1.0-2.1) 05/23/18 04:20 Triglycerides 114 mg/DL (0-149) D 05/20/18 04:50 Cholesterol 268 mg/dL (0-199) H 05/20/18 04:50 LDL Cholesterol Direct 192 mg/dL (0-129) H 05/20/18 04:50 HDL Cholesterol 53 MG/DL (30-70) 05/20/18 04:50 TSH 3rd Generation 4.11 mIU/ML (0.46-4.68) 05/21/18 05:45 Arterial Blood Potassium 3.7 mmol/L (3.6-5.2) 05/19/18 12:00 Urine Color Yellow (YELLOW) 05/19/18 13:30 Urine Clarity Clear (Clear) 05/19/18 13:30 Urine pH 5.0 (5.0-8.0) 05/19/18 13:30 Ur Specific [place] 1.041 (1.003-1.030) H 05/19/18 13:30 Urine Protein Negative mg/dL (NEGATIVE) 05/19/18 13:30 Urine Glucose (UA) >=500 mg/dL (Normal) 05/19/18 13:30 Urine Ketones 80 mg/dL (NEGATIVE) 05/19/18 13:30 Urine Blood Negative (NEGATIVE) 05/19/18 13:30 Urine Nitrate Negative (NEGATIVE) 05/19/18 13:30 Urine Bilirubin Negative (NEGATIVE) 05/19/18 13:30 Urine Urobilinogen 0.2-1.0 mg/dL (0.2-1.0) 05/19/18 13:30 Ur Leukocyte Esterase Neg [place]andy/uL (Negative) 05/19/18 13:30 Urine RBC (Auto) 1 /hpf (0-3) 05/19/18 13:30 Urine Microscopic WBC 4 /hpf (0-5) 05/19/18 13:30 Ur Squamous Epith Cells 1 /hpf (0-5) 05/19/18 13:30 Hyaline Casts 3-5 /hpf (0-2) H 05/19/18 13:30 - Hospital Course Hospital Course: 73 y/o F with a PMHx of IDDM, HTN and HLD, non-adherent to medications, was admitted for evaluation of hyperglycemia and uncontrolled diabetes mellitus. Endocrinolgy was consulted. Medications were optimized. Patient discharged in stable condition. Was offered GUERDA, refused. Patient to follow up with PCP this week. Encouraged compliance with medications as prescribed. Discharge Exam - Head Exam Head Exam: NORMAL INSPECTION - Eye Exam Eye Exam: Normal appearance - Respiratory Exam Respiratory Exam: UNREMARKABLE - Cardiovascular Exam Cardiovascular Exam: +S1, +S2 - GI/Abdominal Exam GI & Abdominal Exam: Unremarkable - Neurological Exam Neurological exam: Alert, Oriented x3 - Psychiatric Exam Psychiatric exam: Normal Affect, Normal Mood - Skin Skin Exam: Normal Color, Warm Discharge Plan - Discharge Medications Prescriptions: Insulin Lispro [Humalog (Insulin Lispro)] 10 unit SQ ACTID #5 cartridge - Follow Up Plan Condition: STABLE Disposition: HOME/ ROUTINE Instructions: Diabetes Type 2 (DC), Generalized Weakness (DC), Palpitations (DC) Additional Instructions: follow up with dr hernandes in 1 week Referrals: Gera Hernandes MD [Staff Provider] -
--- NOTE | 2018-05-23 19:25 | PN ---
DATE: 05/23/2018 ENDOCRINOLOGY FOLLOWUP NOTE LOCATION: Room 407. SUBJECTIVE: This is a 73-year-old female with recent uncontrolled type 2 insulin-requiring diabetes, now being followed closely for metabolic management. Her glycemic levels are fluctuating but improved, and the glucose levels today have ranged from 194 to 239 mg/dL. Her chemistry showed a BUN of 11, sodium 139, potassium 4.1, chloride 106, CO2 of 25, glucose 269, and creatinine 0.3. So at this time, she is scheduled for possible discharge today. We will allow her to resume her home insulin regimen as given by primary care physician with Tresiba given as 20 units subcu at bedtime daily as given. We will also be adding Humalog given as 10 units t.i.d. before meals as ordered. We will obtain serial chemistries and supplement accordingly needed. We will follow. Chasity Ricardo MD
== END 2018-05-23 15:00 | disposition home or self-care (01) | DRG 639 ==
LOC: H.ER 10:31 → H.ERHOLD 14:42 → H.TEL 16:45 → OBSVTOIN 05-21 17:06
PROVIDERS: ADMIT Family Medicine; ATTEND Family Medicine
DX: E11.65 Type 2 diabetes mellitus with hyperglycemia (principal); F41.1 Generalized anxiety disorder; F32.9 Major depressive disorder, single episode, unspecified; E03.9 Hypothyroidism, unspecified; Z79.4 Long term (current) use of insulin; E78.5 Hyperlipidemia, unspecified; Z91.14 Patient's other noncompliance with medication regimen; I10 Essential (primary) hypertension; Z79.82 Long term (current) use of aspirin